=== PATIENT | female | born 1955 | race Caucasian/White ===

== ENCOUNTER 2021-10-30 09:37 | Emergency (ER) | payer OTHER ==
--- NOTE | 2021-10-30 10:33 | EDPHYS ---
Physician Documentation [facility] Name: Kelsi Truong Age: 65 yrs Sex: Female : 1955 Arrival Date: 10/30/2021 Time: 09:38 Bed 8 Private MD: ED Physician Richar Caicedo HPI: 10/30 10:24 This 65 yrs old Female presents to ER via [employer] with complaints of tana Medication Refill. 10:24 This 65 yrs old Female presents to ER via [employer] with complaints of tana Medication Refill. Historical: - Allergies: 09:49 Codeine; ss 09:49 PENICILLINS; ss - PMHx: 09:49 Schizophrenia; Bipolar disorder; Depressive disorder; ss - Immunization history:: Client reports receiving the 2nd dose of the Covid vaccine. - Social history:: Patient uses street drugs, marijuana, Methamphetamine (Meth) Smoking status: Patient reports the use of cigarette tobacco products, unknown amount. ROS: 10:24 Constitutional: Negative for fever, chills, and weight loss, Eyes: Negative for injury, tana pain, redness, and discharge, ENT: Negative for injury, pain, and discharge, Neck: Negative for injury, pain, and swelling, Cardiovascular: Negative for chest pain, palpitations, and edema, Respiratory: Negative for shortness of breath, cough, wheezing, and pleuritic chest pain, Abdomen/GI: Negative for abdominal pain, nausea, vomiting, diarrhea, and constipation, Back: Negative for injury and pain, : Negative for injury, bleeding, discharge, and swelling, MS/Extremity: Negative for injury and deformity, Skin: Negative for injury, rash, and discoloration, Neuro: Negative for headache, weakness, numbness, tingling, and seizure, Allergy/Immunology: Negative for hives, rash, and allergies, Endocrine: Negative for neck swelling, polydipsia, polyuria, polyphagia, and marked weight changes, Hematologic/Lymphatic: Negative for swollen nodes, abnormal bleeding, and unusual bruising. 10:24 Psych: Positive for depression. Exam: 10:24 Constitutional: This is a well developed, well nourished patient who is awake, alert, tana and in no acute distress. Head/Face: Normocephalic, atraumatic. Eyes: Pupils equal round and reactive to light, extra-ocular motions intact. Lids and lashes normal. Conjunctiva and sclera are non-icteric and not injected. Cornea within normal limits. Periorbital areas with no swelling, redness, or edema. ENT: Nares patent. No nasal discharge, no septal abnormalities noted. Tympanic membranes are normal and external auditory canals are clear. Oropharynx with no redness, swelling, or masses, exudates, or evidence of obstruction, uvula midline. Mucous membranes moist. Neck: Trachea midline, no thyromegaly or masses palpated, and no cervical lymphadenopathy. Supple, full range of motion without nuchal rigidity, or vertebral point tenderness. No Meningismus. Chest/axilla: Normal chest wall appearance and motion. Nontender with no deformity. No lesions are appreciated. Cardiovascular: Regular rate and rhythm with a normal S1 and S2. No gallops, murmurs, or rubs. Normal PMI, no JVD. No pulse deficits. Respiratory: Lungs have equal breath sounds bilaterally, clear to auscultation and percussion. No rales, rhonchi or wheezes noted. No increased work of breathing, no retractions or nasal flaring. Abdomen/GI: Soft, non-tender, with normal bowel sounds. No distension or tympany. No guarding or rebound. No evidence of tenderness throughout. Back: No spinal tenderness. No costovertebral tenderness. Full range of motion. Skin: Warm, dry with normal turgor. Normal color with no rashes, no lesions, and no evidence of cellulitis. MS/ Extremity: Pulses equal, no cyanosis. Neurovascular intact. Full, normal range of motion. Neuro: Awake and alert, GCS 15, oriented to person, place, time, and situation. Cranial nerves II-XII grossly intact. Motor strength 5/5 in all extremities. Sensory grossly intact. Cerebellar exam normal. Normal gait. 10:24 Psych: Behavior/mood is uncooperative, Affect is animated, Not oriented to time, Patient has no thoughts/intents to harm self or others. Judgement / Insight is impaired. Memory is normal. Delusions/hallucinations are not present. Vital Signs: 09:45 BP 137 / 83; Pulse 92; Resp 22; Pulse Ox 100% on R/A; Weight 57.15 kg; Height 4 ft. 11 ss in. (149.86 cm); Pain 0/10; 11:54 bp 09:45 Body Mass Index 25.45 (57.15 kg, 149.86 cm) ss 11:54 PT REFUSED bp MDM: 09:49 Patient medically screened. tana 10:27 Differential diagnosis: drug withdrawal. acute psychotic break, depression, psychosis tana secondary to non-compliance. Data reviewed: vital signs, nurses notes, lab test result(s), EKG. Data interpreted: cardiac monitor: rate is 92 beats/min, rhythm is regular, Pulse oximetry: on room air is 100 %. Test interpretation: by ED physician or midlevel provider: ECG, plain radiologic studies. Counseling: I had a detailed discussion with the patient and/or guardian regarding: the historical points, exam findings, and any diagnostic results supporting the discharge/admit diagnosis, lab results, the need to transfer to another facility, for higher level of care, [facility] does not immediately have the required specialist. 10/30 10:31 Order name: SARS RAPID bd 10/30 09:52 Order name: Suicide Screening ([place]); Complete Time: 09:59 tana 10/30 10:23 Order name: Diet Regular; Complete Time: 10:31 tana Administered Medications: 10:45 Drug: Depakene (valproic acid) 500 mg Route: PO; bp 11:30 Follow up: Response: No adverse reaction bp 11:08 Not Given (Patient Refused): NS 0.9% 1000 ml IV at 1 bolus Per protocol; 1000 mL bolus bp 11:30 Not Given (MED UNAVAILABLEe): SEROquel (QUEtiapine) 25 mg PO once bp Disposition Summary: 10/30/21 11:04 Discharge Ordered Location: Home tana Problem: new(10/30/21 11:04) tana Symptoms: have improved(10/30/21 11:04) tana Condition: Stable(10/30/21 11:04) tana Diagnosis - Abuse of other non-psychoactive substances tana - Bipolar disorder, unspecified tana - Schizophrenia, unspecified(10/30/21 11:04) tana Followup: tana - With: Private Physician - When: 2 - 3 days - Reason: Recheck today's complaints, Continuance of care, Re-evaluation by your physician Followup: tana - With: Karan Lyon MD - When: 2 - 3 days - Reason: Recheck today's complaints, Re-evaluation by your physician Discharge Instructions: - Discharge Summary Sheet tana - Substance Use Disorder tana - Schizophrenia tana - Managing Bipolar Disorder tana - Supporting Someone With Bipolar Disorder tana - Substance Use Disorder and Mental Illness tana - Supporting Someone With Schizophrenia tana - Supporting Someone With Substance Use Disorder tana Forms: - Medication Reconciliation Form tana - Thank You Letter tana - Antibiotic Education tana - Prescription Opioid Use tana Signatures: Dispatcher [employer] EDMS Richar Caicedo MD MD cha Smirch, Shelby RN RN Norris Figueroa RN RN bp Corrections: (The following items were deleted from the chart) 11:04 10:32 to psych tana tana 11:04 10:32 Psych Facility tana tana 11:04 10:32 Higher level of care tana tana 11:04 10:32 Stable tana tana 11:04 10:32 new tana tana 11:04 10:32 have improved tana tana 11:04 10:32 Bipolar disorder, current episode depressed, severe, with psychotic features tana tana 11:04 10:32 Schizophrenia, unspecified tana tana 11: 09:52 EKG - Nurse/Tech ordered. [facility] bp 11: 09:52 IV Saline Lock ordered. [facility] bp 11: 09:52 Labs collected and sent ordered. [facility] bp 11: 09:52 Urine Dipstick-Ancillary ordered. [facility] bp 11:43 10:31 VALPROIC ACID (DEPAKOTE)+C.LAB.BRZ ordered. EDMS EDMS 11:44 10:27 THYROID STIMULAT HORMONE+C.LAB.BRZ ordered. EDMS EDMS
--- NOTE | 2021-10-30 10:33 | ER ---
Nurse's Notes [facility] Name: Kelsi Truong Age: 65 yrs Sex: Female : 1955 Arrival Date: 10/30/2021 Time: 09:38 Bed 8 Private MD: Diagnosis: Abuse of other non-psychoactive substances;Bipolar disorder, unspecified;Schizophrenia, unspecified Presentation: 10/30 09:45 Chief complaint: Patient states: Out of psych medications for 1 week. Titi Damian officer states that he was called by her friend that she is living with because she was throwing wheelchairs out of the trailer. Pt admits to smoking meth and medical marijuana yesterday with friend. Denies SI/HI at this time, but states she was upset with her roommate after getting into an argument. Coronavirus screen: Client denies travel out of the [place] in the last 14 days. Ebola Screen: Patient denies exposure to infectious person. Patient denies travel to an Ebola-affected area in the 21 days before illness onset. Initial Sepsis Screen: Does the patient meet any 2 criteria? No. Patient's initial sepsis screen is negative. Does the patient have a suspected source of infection? No. Patient's initial sepsis screen is negative. Risk Assessment: Do you want to hurt yourself or someone else? Patient reports no desire to harm self or others. Onset of symptoms is unknown. 09:45 Method Of Arrival: Law Enforcement: Titi Damian [facility] 09:45 Acuity: EBONY 3 ss Triage Assessment: 09:50 General: Appears in no apparent distress. comfortable, Behavior is calm, cooperative. bp Pain: Denies pain. EENT: No deficits noted. Neuro: Level of Consciousness is awake, alert, obeys commands, Oriented to Appropriate for age. Cardiovascular: No deficits noted. Respiratory: No deficits noted. GI: No signs and/or symptoms were reported involving the gastrointestinal system. : No signs and/or symptoms were reported regarding the genitourinary system. Derm: No deficits noted. Musculoskeletal: No deficits noted. Historical: - Allergies: 09:49 Codeine; ss 09:49 PENICILLINS; ss - PMHx: 09:49 Schizophrenia; Bipolar disorder; Depressive disorder; ss - Immunization history:: Client reports receiving the 2nd dose of the Covid vaccine. - Social history:: Patient uses street drugs, marijuana, Methamphetamine (Meth) Smoking status: Patient reports the use of cigarette tobacco products, unknown amount. Screenin:50 Abuse screen: Denies threats or abuse. Denies injuries from another. Nutritional bp screening: No deficits noted. Tuberculosis screening: No symptoms or risk factors identified. Fall Risk None identified. Assessment: 09:50 General: SEE TRIAGE NOTE. bp 11:03 Reassessment: PT REFUSING PIV AND FURTHER CARE. CONTINUES TO DENY SI/HI. MD NOTIFIED. bp 11:30 Reassessment: D/C ON HOLD FOR FEEDING. bp 11:54 Reassessment: PT D/C AMBULATORY. bp Vital Signs: 09:45 BP 137 / 83; Pulse 92; Resp 22; Pulse Ox 100% on R/A; Weight 57.15 kg; Height 4 ft. 11 ss in. (149.86 cm); Pain 0/10; 11:54 bp 09:45 Body Mass Index 25.45 (57.15 kg, 149.86 cm) ss 11:54 PT REFUSED bp ED Course: 09:38 Patient arrived in ED. bd 09:49 Triage completed. ss 09:49 Richar Caicedo MD is Attending Physician. tana 09:49 Arm band placed on right wrist. ss 09:50 Patient has correct armband on for positive identification. Bed in low position. Call bp light in reach. Side rails up X2. 09:56 Norris Figueroa, LIVIA is Primary Nurse. bp 11:04 Karan Lyon MD is Referral Physician. tana 11:30 No provider procedures requiring assistance completed. Patient did not have IV access bp during this emergency room visit. Administered Medications: 10:45 Drug: Depakene (valproic acid) 500 mg Route: PO; bp 11:30 Follow up: Response: No adverse reaction bp 11:08 Not Given (Patient Refused): NS 0.9% 1000 ml IV at 1 bolus Per protocol; 1000 mL bolus bp 11:30 Not Given (MED UNAVAILABLEe): SEROquel (QUEtiapine) 25 mg PO once bp Medication: 09:50 VIS not applicable for this client. bp Outcome: 10:32 ER care complete, transfer ordered by . tana 11:04 Discharge ordered by . tana 11:30 Discharged to home ambulatory. bp 11:30 Condition: stable 11:30 Discharge instructions given to patient, Instructed on discharge instructions, follow up and referral plans. Demonstrated understanding of instructions, follow-up care. 11:56 Patient left the ED. bp Signatures: Yocasta Sanderson Corey, MD MD cha Smirch, Shelby, LIVIA RN ss Norris Figueroa RN RN bp
[2021-10-30] MEDS ORDERED: DIVALPROEX DR 250 MG TAB PO ONE (11:21)
[2021-10-30 11:30] LABS: SARS-CoV-2 Antigen Rapid Res Negative (Negative)
[2021-10-30 12:23] VITALS: BP 137/83; O2SAT 100
== END 2021-10-30 11:56 | disposition home or self-care (01) ==
LOC: ER 09:37 → EDBD 09:37 → ER 11:56
DX: F55.8 Abuse of other non-psychoactive substances (principal); F20.9 Schizophrenia, unspecified; F31.9 Bipolar disorder, unspecified; F17.210 Nicotine dependence, cigarettes, uncomplicated; Z88.0 Allergy status to penicillin; Z20.822 Contact with and (suspected) exposure to COVID-19
CPT/HCPCS: 36415; 87811

== ENCOUNTER 2021-11-01 13:54 | Emergency (ER) | payer OTHER ==
--- OUTSIDE RECORDS SUMMARY | 2021-11-01 14:00 | XMS REPORT | Continuity of Care Document ---
:1955 Author Organization [facility] t Address [address] [place] [address] Care Team Providers Name Role Phone Doris Daigle A Attending Clinician Unavailable PATRICK ROSAS Attending Clinician Unavailable Doris Daigle A Admitting Clinician Unavailable Physician, No Primary or Family Admitting Clinician Unavaila ble Payers Payer Name Policy Type Policy Number Effective Date Expiration Date S itzel MEDICARE PART A & B [id number] 2003 00:00:00 [facility] [id number] 2020 MEDICAID CROSSOVER 00:00:00 Problems This patient has no known problems. Allergies, Adverse Reactions, Alerts Allergy Allergy Status Severity Reaction(s) Onset Inactive Treating Comm ents Source Name Type Date Date Clinician zolpidem DA Active MO 2018-03 [facility] tartrate 04-15 Clear 00:00: Gaytan 00 [facility] [place] DA Active U 2018-03 [facility] ins 04-15 Clear 00:00: Gaytan [facility] morphine DA Active SV 2018-03 [facility] 04-15 Clear 00:00: Gaytan [facility] clopidog DA Active U 2018-03 [facility] rel 04-15 Clear 00:00: Gaytan 00 [facility] zolpidem DA Active MO sleep walks 2018- [facility] tartrate 04-15 Clear 00:00: Gaytan 00 [facility] [place] DA Active U RASH 2018- [facility] ins 04-15 Clear 00:00: Gaytan 00 [facility] morphine DA Active SV "I GO 2018- [facility] GERARDO", 04-15 Clear HALLUCINATIO 00:00: Gaytan NS [facility] clopidog DA Active U HIVES 2018- [facility] rel 04-15 Clear 00:00: Gaytan 00 [facility] zolpidem DA Active MO 2018-0 [facility] tartrate 10-24 Clear 00:00: Gaytan 00 [facility] [place] DA Active U 2018-0 [facility] ins 10-24 Clear 00:00: Gaytan [facility] morphine DA Active SV 2018-0 [facility] 10-24 Clear 00:00: Gaytan 00 [facility] clopidog DA Active U 2018-0 [facility] rel 10-24 Clear 00:00: Gaytan 00 [facility] zolpidem DA Active MO 2015- [facility] tartrate 06-29 [place] [facility] DA Active U 2015- [facility] ins 06-29 [place] [facility] morphine DA Active SV 2015-0 [facility] 08 [place] 00:[facility]: e [facility] clopidog DA Active U 2015-0 [facility] rel 06-29 [place] 00:[facility]: e [facility] Medications This patient has no known medications. Procedures This patient has no known procedures. Encounters Start End Encounter Admission Attending Care Care Encounter Source Date/Time Date/Time Type Type Clinicians Facility Department ID 2020-01-20 Inpatient EM JOANNA Daigle INTE.02 [id number] [facility] 00:43:00 [facility] [id number] [facility] 2020-01-19 Inpatient HCABM TERRA [id number] [facility] 22:15:00 [id number] [facility] 2021-04-03 2021-04-04 Emergency [id number] Prasanna Ray 19:24:00 06:06:00 PATRICK Junior 2021-04-04 2021-04-04 Emergency [facility] [id number] Prasanna Ray 00:53:39 01:22:09 Health 2021-04-04 2021-04-04 Emergency [facility] [id number] Ray 00:34:37 00:50:23 PATRICK Junior h 2021-04-03 2021-04-03 Emergency [facility] [id number] Ray 23:45:36 23:45:40 Health 2020-01-20 2020-01-20 Outpatient DESIRE Daigle [id number] [facility] 14:59:00 14:59:00 [facility] [id number] [facility] Results Test Description Test Time Test Comments Results Result Comments Source COVID 19 Asymptomatic IH AG 2020-01-22 16:12:00 Test Item Value Reference Range Interpretation Comme nts COVID 19 Asymptomatic IH AG (test code = COVNONPUIAG) NEGATIVE [id number] 13:41:00 Test Item Value Reference Range Interpretation Comments GLUBED (test code = 135 mg/dL 74-106 H 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[facility] THROMBOPLASTIN TIME [id number] 05:36:00 Test Item Value Reference Range Interpretation Comments THROMBOPLASTIN TIME PARTIAL 57.9 seconds 23.0-37.0 H (test code = PTT) CBC W/AUTO [id number] 05:08:00 Test Item Value Reference Range Interpretation Comments WHITE BLOOD CELL (test code = 5.2 K/mm3 4.5-12.5 N WBC) RED BLOOD CELL (test code = 2.65 mill/mm3 3.7-5.2 L RBC) HEMOGLOBIN (test code = HGB) 9.8 gram/dL 11.5-15.5 L HEMATOCRIT (test code = HCT) 29.5 % 36.0-46.0 L MEAN CELL VOLUME (test code = 111.3 fL 80-98 H MCV) MEAN CELL HGB (test code = MCH) 37.0 picogram 27.0-33.0 H MEAN CELL HGB CONCETRATION 33.2 gram/dL 33.0-36.0 N (test code = MCHC) RED CELL DISTRIBUTION WIDTH 14.2 % 11.6-16.2 N (test code = RDW) RED CELL DISTRIBUTION WIDTH SD 57.8 fL 37.0-51.0 H (test code = RDW-SD) PLATELET COUNT (test code = 143 K/mm3 150-450 L PLT) MEAN PLATELET VOLUME (test code 9.5 fL 6.7-11.0 N = MPV) NEUTROPHIL % (test code = NT%) 54.0 % 39.0-69.0 N IMMATURE GRANULOCYTE % (test 0.4 % 0.0-5.0 N code = IG%) LYMPHOCYTE % (test code = LY%) 31.1 % 25.0-55.0 N MONOCYTE % (test code = MO%) 14.1 % 0.0-10.0 H EOSINOPHIL % (test code = EO%) 0.2 % 0.0-5.0 N BASOPHIL % (test code = BA%) 0.2 % 0.0-1.0 N NUCLEATED RBC % (test code = 0.0 % 0-0 N NRBC%) NEUTROPHIL # (test code = NT#) 2.83 K/mm3 1.8-7.7 N IMMATURE GRANULOCYTE # (test 0.02 x10 3/uL 0-0.03 N code = IG#) LYMPHOCYTE # (test code = LY#) 1.63 K/mm3 1.0-5.0 N MONOCYTE # (test code = MO#) 0.74 K/mm3 0-0.8 N EOSINOPHIL # (test code = EO#) 0.01 K/mm3 0.0-0.5 N BASOPHIL # (test code = BA#) 0.01 K/mm3 0.0-0.2 N NUCLEATED RBC # (test code = 0.00 K/mm3 0.0-0.1 N NRBC#) MANUAL DIFF REQUIRED (test code NO = MDIFF) BASIC METABOLIC [id number] 03:42:00 Test Item Value Reference Range Interpretation Comments SODIUM (test code = 140 mmol/L 136-145 N NA) POTASSIUM (test code 3.6 mmol/L 3.5-5.1 N = K) CHLORIDE (test code = 109.0 mmol/L 98-107 H CL) CARBON DIOXIDE (test 22.0 mmol/L 21-32 N code = CO2) ANION GAP (test code 12.6 10-20 N = GAP) GLUCOSE (test code = 77 mg/dL 74-106 N GLU) BLOOD UREA NITROGEN 19 mg/dL 7-18 H (test code = BUN) GLOMERULAR FILTRATION 50 mL/min >=60 Estima shai GFR by RATE (test code = using Cristin fied MDRD GFR) formula.Chronic kidney disease is defined as [facility] er kidney damageor GFR <60 mL/min/1.73 m2 for >3 months. CREATININE (test code 1.10 mg/dL 0.55-1.02 H Note change in = CREAT) reference range due to change in reagent. BUN/CREATININE RATIO 17.3 10-20 N (test code = BUN/CREA) CALCIUM (test code = 7.5 mg/dL 8.5-10.1 L CA) THROMBOPLASTIN TIME [id number] 17:42:00 Test Item Value Reference Range Interpretation Comments THROMBOPLASTIN TIME PARTIAL 41.1 seconds 23.0-37.0 H (test code = PTT) IS PATIENT ON ANTICOAGULANTS? YLIST ANTICOAGULANTS HEPARINTHROMBOPLASTIN TIME [id number] 10:32:00 Test Item Value Reference Range Interpretation Comments THROMBOPLASTIN TIME PARTIAL 47.0 seconds 23.0-37.0 H (test code = PTT) IS PATIENT ON ANTICOAGULANTS? YLIST ANTICOAGULANTS HEPARINCOMMENTS TO PILLOWCASE FOLDER: ON HEPARIN DRIPCOMPREHENSIVE METABOLIC [id number] 04:15:00 Test Item Value Reference Range Interpretation Comments SODIUM (test code = 137 mmol/L 136-145 N NA) POTASSIUM (test code = 4.0 mmol/L 3.5-5.1 N K) CHLORIDE (test code = 103.0 mmol/L 98-107 N CL) CARBON DIOXIDE (test 27.0 mmol/L 21-32 N code = CO2) ANION GAP (test code = 11.0 10-20 N GAP) GLUCOSE (test code = 88 mg/dL 74-106 N GLU) BLOOD UREA NITROGEN 21 mg/dL 7-18 H (test code = BUN) GLOMERULAR FILTRATION 45 mL/min >=60 Estima shai GFR by RATE (test code = GFR) using Modified MDRD formula.Chronic kidney disease is defined as [facility] er kidney damageor GFR <60 mL/min/1.73 m2 for >3 months. CREATININE (test code 1.20 mg/dL 0.55-1.02 H Note change in = CREAT) reference range due to change in reagent. BUN/CREATININE RATIO 17.5 10-20 N (test code = BUN/CREA) TOTAL PROTEIN (test 5.6 gram/dL 6.4-8.2 L code = PROT) ALBUMIN (test code = 2.4 g/dL 3.4-5.0 L ALB) GLOBULIN (test code = 3.2 gram/dL 2.7-4.2 N GLOB) ALBUMIN/GLOBULIN RATIO 0.8 0.75-1.50 N (test code = A/G) CALCIUM (test code = 8.3 mg/dL 8.5-10.1 L CA) BILIRUBIN TOTAL (test 0.50 mg/dL 0.0-1.0 N code = BILT) SGOT/AST (test code = 110 IUnit/L 15-37 H AST) SGPT/ALT (test code = 23 IUnit/L 12-78 N ALT) ALKALINE PHOSPHATASE 55 IUnit/L 45-117 N Note change in TOTAL (test code = reference range due ALKP) to change in reagent. COMPREHENSIVE METABOLIC [id number] 04:11:00 Test Item Value Reference Range Interpretation Comments SODIUM (test code = NA) 137 mmol/L 136-145 N POTASSIUM (test code = K) 4.0 mmol/L 3.5-5.1 N CHLORIDE (test code = CL) 103.0 mmol/L 98-107 N CARBON DIOXIDE (test code = CO2) mmol/L 21-32 ANION GAP (test code = GAP) 10-20 GLUCOSE (test code = GLU) mg/dL 74-106 BLOOD UREA NITROGEN (test code = mg/dL 7-18 BUN) GLOMERULAR FILTRATION RATE (test mL/min >=60 code = GFR) CREATININE (test code = CREAT) mg/dL 0.55-1.02 BUN/CREATININE RATIO (test code 10-20 = BUN/CREA) TOTAL PROTEIN (test code = PROT) gram/dL 6.4-8.2 ALBUMIN (test code = ALB) g/dL 3.4-5.0 GLOBULIN (test code = GLOB) gram/dL 2.7-4.2 ALBUMIN/GLOBULIN RATIO (test 0.75-1.50 code = A/G) CALCIUM (test code = CA) mg/dL 8.5-10.1 BILIRUBIN TOTAL (test code = mg/dL 0.0-1.0 BILT) SGOT/AST (test code = AST) IUnit/L 15-37 SGPT/ALT (test code = ALT) IUnit/L 12-78 ALKALINE PHOSPHATASE TOTAL (test IUnit/L 45-117 code = ALKP) THROMBOPLASTIN TIME [id number] 03:55:00 Test Item Value Reference Range Interpretation Comments THROMBOPLASTIN TIME PARTIAL 54.6 seconds 23.0-37.0 H (test code = PTT) IS PATIENT ON ANTICOAGULANTS? YLIST ANTICOAGULANTS HEPARINCBC W/AUTO DIFF 2020-01-21 03:46:00 Test Item Value Reference Range Interpretation Comments WHITE BLOOD CELL (test code = 5.7 K/mm3 4.5-12.5 N WBC) RED BLOOD CELL (test code = 2.62 mill/mm3 3.7-5.2 L RBC) HEMOGLOBIN (test code = HGB) 9.6 gram/dL 11.5-15.5 L HEMATOCRIT (test code = HCT) 28.6 % 36.0-46.0 L MEAN CELL VOLUME (test code = 109.2 fL 80-98 H MCV) MEAN CELL HGB (test code = MCH) 36.6 picogram 27.0-33.0 H MEAN CELL HGB CONCETRATION 33.6 gram/dL 33.0-36.0 N (test code = MCHC) RED CELL DISTRIBUTION WIDTH 14.2 % 11.6-16.2 N (test code = RDW) RED CELL DISTRIBUTION WIDTH SD 56.1 fL 37.0-51.0 H (test code = RDW-SD) PLATELET COUNT (test code = 120 K/mm3 150-450 L PLT) MEAN PLATELET VOLUME (test code 9.6 fL 6.7-11.0 N = MPV) NEUTROPHIL % (test code = NT%) 60.7 % 39.0-69.0 N IMMATURE GRANULOCYTE % (test 0.4 % 0.0-5.0 N code = IG%) LYMPHOCYTE % (test code = LY%) 26.7 % 25.0-55.0 N MONOCYTE % (test code = MO%) 11.5 % 0.0-10.0 H EOSINOPHIL % (test code = EO%) 0.5 % 0.0-5.0 N BASOPHIL % (test code = BA%) 0.2 % 0.0-1.0 N NUCLEATED RBC % (test code = 0.0 % 0-0 N NRBC%) NEUTROPHIL # (test code = NT#) 3.44 K/mm3 1.8-7.7 N IMMATURE GRANULOCYTE # (test 0.02 x10 3/uL 0-0.03 N code = IG#) LYMPHOCYTE # (test code = LY#) 1.51 K/mm3 1.0-5.0 N MONOCYTE # (test code = MO#) 0.65 K/mm3 0-0.8 N EOSINOPHIL # (test code = EO#) 0.03 K/mm3 0.0-0.5 N BASOPHIL # (test code = BA#) 0.01 K/mm3 0.0-0.2 N NUCLEATED RBC # (test code = 0.00 K/mm3 0.0-0.1 N NRBC#) MANUAL DIFF REQUIRED (test code NO = MDIFF) THROMBOPLASTIN TIME [id number] 22:17:00 Test Item Value Reference Range Interpretation Comments THROMBOPLASTIN TIME PARTIAL 55.6 seconds 23.0-37.0 H (test code = PTT) IS PATIENT ON ANTICOAGULANTS? YLIST ANTICOAGULANTS HEPARINTHYROID STIMULATING [id number] 17:42:00 Test Item Value Reference Range Interpretation Comments THYROID STIMULATING 44.100 uIU/mL 0.36-3.74 H TSH REF ERENCE HORMONE (test code = RANGES: EUTHYROID: TSH) 0.35 - 4.3 mIU/ mL HYPO : > 5.5 mI U/mL HYPER : < 0.35 mIU/mL SPECIMEN COMMENTS: add onCOMMENTS TO PILLOWCASE FOLDER: add onTHROMBOPLASTIN TIME [id number] 15:27:00 Test Item Value Reference Range Interpretation Comments THROMBOPLASTIN TIME PARTIAL 47.4 seconds 23.0-37.0 H (test code = PTT) SPECIMEN COMMENTS: HEPARIN DRIPIS PATIENT ON ANTICOAGULANTS? YLIST ANTICOAGULANTS [id number] 10:33:00 Test Item Value Reference Range Interpretation Comments TROPONIN-I (test code = TROPI) 3.000 ng/mL 0-0.045 HH COMMENTS TO PILLOWCASE FOLDER: COLLECT 3 HOURS AFTER PREVIOUS SAMPLETROPONIN-I 2020-01-20 07:36:00 Test Item Value Reference Range Interpretation Comments TROPONIN-I (test 2.690 ng/mL 0-0.045 HH Results dee led to FRANK code = TROPI) [id number] by Valeriano ESCOBAROA 01/20/20 [id number] itical results verifie d and read back by Nu rse? Y COMMENTS TO PILLOWCASE FOLDER: COLLECT 3 HOURS AFTER PREVIOUS SAMPLEBASIC METABOLIC [id number] 07:18:00 Test Item Value Reference Range Interpretation Comments SODIUM (test code = 133 mmol/L 136-145 L NA) POTASSIUM (test code 4.0 mmol/L 3.5-5.1 N = K) CHLORIDE (test code = 101.0 mmol/L 98-107 N CL) CARBON DIOXIDE (test 24.0 mmol/L 21-32 N code = CO2) ANION GAP (test code 12.0 10-20 N = GAP) GLUCOSE (test code = 88 mg/dL 74-106 N GLU) BLOOD UREA NITROGEN 13 mg/dL 7-18 N (test code = BUN) GLOMERULAR FILTRATION 45 mL/min >=60 Estima shai GFR by RATE (test code = using Cristin fied MDRD GFR) formula.Chronic kidney disease is defined as ei er kidney damageor GFR <60 mL/min/1.73 m2 for >3 months. CREATININE (test code 1.20 mg/dL 0.55-1.02 H Note change in = CREAT) reference range due to change in reagent. BUN/CREATININE RATIO 10.8 10-20 N (test code = BUN/CREA) CALCIUM (test code = 8.8 mg/dL 8.5-10.1 N CA) LIPID PROFILE (CORONARY RISK)2020-01-20 07:18:00 Test Item Value Reference Range Interpretation Comments TRIGLYCERIDES (test 124 mg/dL 20-150 N code = TRIG) CHOLESTEROL (test code 160 mg/dL 0-200 N = CHOL) CHOLESTEROL/HDL RATIO 3.0 RATIO 0-4.9 N RISK A SSOCIATED WITH (test code = CHOLHDL) CHOL/H DL RATIOS: Risk Male Female1/2 AVERAGE 3.43 3.27AVERAG E 4.97 4.442X AVERAGE 9.55 7.053X AVERAGE 23.39 11.04 REFERENCE VALUE IS RELATED TO R ISK LEVELS ASRECOMM ENDED BY THE NAT. GARRISON RT, LUNG, AND BLOOD INST. HDL CHOLESTEROL (test 52 mg/dL 40-60 N code = HDL) LIPOPROTEIN LDL (test 92 mg/dL 100-129 L ====== code = LDL) ======= Referen ce Interval: mg /dL mmol/L--------- ------- ------- ------O ptimal <100 <2.6Near/above optimal 100-129 2.6-3.3Borderli ne High 130-159 3.4-4.1 High 160-189 4.1-4.9 Very High >=190 >=4.9========= This LDL result is a direct measurement.=== ====== BASIC METABOLIC [id number] 07:10:00 Test Item Value Reference Range Interpretation Comments SODIUM (test code = NA) 133 mmol/L 136-145 L POTASSIUM (test code = K) 4.0 mmol/L 3.5-5.1 N CHLORIDE (test code = CL) 101.0 mmol/L 98-107 N CARBON DIOXIDE (test code = CO2) mmol/L 21-32 ANION GAP (test code = GAP) 10-20 GLUCOSE (test code = GLU) mg/dL 74-106 BLOOD UREA NITROGEN (test code = mg/dL 7-18 BUN) GLOMERULAR FILTRATION RATE (test mL/min >=60 code = GFR) CREATININE (test code = CREAT) mg/dL 0.55-1.02 BUN/CREATININE RATIO (test code 10-20 = BUN/CREA) CALCIUM (test code = CA) mg/dL 8.5-10.1 LIPID PROFILE (CORONARY RISK)2020-01-20 07:10:00 Test Item Value Reference Range Interpretation Comments TRIGLYCERIDES (test code = TRIG) mg/dL 20-150 CHOLESTEROL (test code = CHOL) mg/dL 0-200 CHOLESTEROL/HDL RATIO (test code = RATIO 0-4.9 CHOLHDL) HDL CHOLESTEROL (test code = HDL) mg/dL 40-60 LIPOPROTEIN LDL (test code = LDL) mg/dL 100-129 CBC W/AUTO [id number] 06:14:00 Test Item Value Reference Range Interpretation Comments WHITE BLOOD CELL (test code = 7.5 K/mm3 4.5-12.5 N WBC) RED BLOOD CELL (test code = 2.80 mill/mm3 3.7-5.2 L RBC) HEMOGLOBIN (test code = HGB) 10.1 gram/dL 11.5-15.5 L HEMATOCRIT (test code = HCT) 31.2 % 36.0-46.0 L MEAN CELL VOLUME (test code = 111.4 fL 80-98 H MCV) MEAN CELL HGB (test code = MCH) 36.1 picogram 27.0-33.0 H MEAN CELL HGB CONCETRATION 32.4 gram/dL 33.0-36.0 L (test code = MCHC) RED CELL DISTRIBUTION WIDTH 14.2 % 11.6-16.2 N (test code = RDW) RED CELL DISTRIBUTION WIDTH SD 57.6 fL 37.0-51.0 H (test code = RDW-SD) PLATELET COUNT (test code = 98 K/mm3 150-450 L PLT) MEAN PLATELET VOLUME (test code 9.9 fL 6.7-11.0 N = MPV) NEUTROPHIL % (test code = NT%) 65.1 % 39.0-69.0 N IMMATURE GRANULOCYTE % (test 0.5 % 0.0-5.0 N code = IG%) LYMPHOCYTE % (test code = LY%) 24.0 % 25.0-55.0 L MONOCYTE % (test code = MO%) 9.8 % 0.0-10.0 N EOSINOPHIL % (test code = EO%) 0.3 % 0.0-5.0 N BASOPHIL % (test code = BA%) 0.3 % 0.0-1.0 N NUCLEATED RBC % (test code = 0.0 % 0-0 N NRBC%) NEUTROPHIL # (test code = NT#) 4.91 K/mm3 1.8-7.7 N IMMATURE GRANULOCYTE # (test 0.04 x10 3/uL 0-0.03 H code = IG#) LYMPHOCYTE # (test code = LY#) 1.81 K/mm3 1.0-5.0 N MONOCYTE # (test code = MO#) 0.74 K/mm3 0-0.8 N EOSINOPHIL # (test code = EO#) 0.02 K/mm3 0.0-0.5 N BASOPHIL # (test code = BA#) 0.02 K/mm3 0.0-0.2 N NUCLEATED RBC # (test code = 0.00 K/mm3 0.0-0.1 N NRBC#) MANUAL DIFF REQUIRED (test code NO = MDIFF) THROMBOPLASTIN TIME [id number] 03:44:00 Test Item Value Reference Range Interpretation Comments THROMBOPLASTIN TIME PARTIAL 29.8 seconds 23.0-37.0 N (test code = PTT) IS PATIENT ON ANTICOAGULANTS? YLIST ANTICOAGULANTS [id number] 03:34:00 Test Item Value Reference Range Interpretation Comments HEMATOCRIT (test code = HCT) 27.4 % 36.0-46.0 L PLATELET [id number] 03:34:00 Test Item Value Reference Range Interpretation Comments PLATELET COUNT (test code = PLT) 96 K/mm3 150-450 L BASIC METABOLIC [id number] 23:18:00 Test Item Value Reference Range Interpretation Comments SODIUM (test code = 137 mmol/L 136-145 N NA) POTASSIUM (test code 4.7 mmol/L 3.5-5.1 N = K) CHLORIDE (test code = 102.0 mmol/L 98-107 N CL) CARBON DIOXIDE (test 25.0 mmol/L 21-32 N code = CO2) ANION GAP (test code 14.7 10-20 N = GAP) GLUCOSE (test code = 91 mg/dL 74-106 N GLU) BLOOD UREA NITROGEN 13 mg/dL 7-18 N (test code = BUN) GLOMERULAR FILTRATION 35 mL/min >=60 Estima shai GFR by RATE (test code = using Cristin fied MDRD GFR) formula.Chronic kidney disease is defined as [facility] er kidney damageor GFR <60 mL/min/1.73 m2 for >3 months. CREATININE (test code 1.50 mg/dL 0.55-1.02 H Note change in = CREAT) reference range due to change in reagent. BUN/CREATININE RATIO 8.7 10-20 L (test code = BUN/CREA) CALCIUM (test code = 9.1 mg/dL 8.5-10.1 N CA) [id number] 23:18:00 Test Item Value Reference Range Interpretation Comments TROPONIN-I (test 1.460 ng/mL 0-0.045 HH Results dee led to code = TROPI) [id number] by Valeriano SCHERER.GP 01/19/20 [id number] itical results verifie d and read back by Nu rse? Y [id number] 23:18:00 Test Item Value Reference Range Interpretation Comments ALCOHOL (test code = 5 mg/dL 0.0-3.0 H ------- INTERPRET ALC) LYNN DATA NOTE: POSITIVE SCREEN ING RESULTS SHOULD BE CONSI DERED PRESUMPTIVE.WHE N COLLECTED FOR MEDICAL PUR POSES ONLY. SPECIMEN WILL N OTBE COLLECTED BY AIN OF CUSTODY.IF A CO NFIRMATION OF POSITIVE RES ULTS IS DESIRED, ACONFI RMATION TEST MUST BE RE QUESTED BY THE PHYSICIAN A T ANADDITIONAL CH ARGE TO THE PATIENT. DRUGS OF ABUSE SCREEN [id number] 23:01:00 Test Item Value Reference Range Interpretation Comments UA PH DIPSTICK (test 6.5 5.0-8.0 code = DORIS) URN COCAINE (test NEGATIVE <300 ng/mL code = COCAURN) URN CANNABINOIDS POSITIVE <50 ng/mL A This test p rovides only a (test code = preliminary sathish t result. CANNABURN) A morespecific alternate chemical method must be used in order t oobtain a confirmed norma tical result. Gas chromatography/ mass spectrometry (G C/MS) is thepreferred co nfirmatory method. Other c hemical confirmationmet hods are available. Clin ical consideration a nd professional ju dgment should be appli ed to any drug of abusete st result, particularly wh en preliminary pos itive resultsare used.Unconfirme d screening resul ts must not be used fornon-medical purposes (e.g., employme nt testing, legalt esting). URN AMPHETAMINE (test NEGATIVE <1000 ng/mL code = AMPHETURN) URN BARBITURATE (test NEGATIVE <200 ng/mL code = BARBITURN) URN BENZODIAZEPINE NEGATIVE <200 ng/mL (test code = BENZOURN) URN OPIATES (test NEGATIVE <300 ng/mL code = OPIATURN) URN PHENCYCLIDINE NEGATIVE <25 ng/mL (PCP) (test code = PHENCURN) URN METHADONE (test NEGATIVE <300 ng/mL code = METHAURN) BASIC METABOLIC [id number] 22:50:00 Test Item Value Reference Range Interpretation Comments SODIUM (test code = NA) 137 mmol/L 136-145 N POTASSIUM (test code = K) 4.7 mmol/L 3.5-5.1 N CHLORIDE (test code = CL) 102.0 mmol/L 98-107 N CARBON DIOXIDE (test code = CO2) mmol/L 21-32 ANION GAP (test code = GAP) 10-20 GLUCOSE (test code = GLU) mg/dL 74-106 BLOOD UREA NITROGEN (test code = mg/dL 7-18 BUN) GLOMERULAR FILTRATION RATE (test mL/min >=60 code = GFR) CREATININE (test code = CREAT) mg/dL 0.55-1.02 BUN/CREATININE RATIO (test code 01-10 = BUN/CREA) CALCIUM (test code = CA) mg/dL 8.5-10.1 [id number] 22:50:00 Test Item Value Reference Range Interpretation Comments TROPONIN-I (test code = TROPI) ng/mL 0-0.045 [id number] 22:50:00 Test Item Value Reference Range Interpretation Comments ALCOHOL (test code = ALC) mg/dL 0-3 - CT C-SPINE W/O [id number] 22:49:00 [facility]Name: AGUS RODRIGUES : 1955 Sex: F Name: AGUS RODRIGUES [facility] : 1955 Age/S: 64 / F [address] [facility] Unit #: [id number] Loc: [place] [address] Phys: Nicholas Hernadez MD Acct: [id number] Dis Date: Status: REG ER PHONE #:[phone] Exam Date: 01/19/20202239 FAX #: [phone] Reason: Neck Pain EXAMS: CPT CODE: [id number] CT C-SPINE W/O CONTRAST 82297 AFTER HOURS SERVICE ON: 01/19/2020 10:[address] of the Cervical Spine Without Contrast Location Code M12 History: Neck Pain, fall on blood thinners. Technique: Scans were obtained on a helical scanner pre IV contrast only. One or more of the following dose reduction techniques were used: Automated exposure control, adjustment of the mA and/or kV according to patient size, and/or utilization of iterative reconstruction technique. Findings: Craniocervical junction isintact. Atlantoaxial joint is unremarkable. C1 ring is normal. Dens is intact. Transverse processes,pedicles and lamina are intact. No compression fracture or pathologic lesions. There is moderate cervical spondylosis including multilevel endplate spurs and disc space narrowing, more pronounced at C5-C6 where there is mild central canal stenosis and moderate to severe bilateral foraminal stenoses. Impression: No cervical spine fracture. Electronically Signed by Pedro Varghese M.D. on01/19/2020 at 2249 Reported and signed by: Pedro Varghese M.D. CC: Nicholas Hernadez MD Technol ogist:Soco Henriquez RT(R); ANEUDY Goncalves CTDI: DLP: Trnscb Date/Time: 01/19/2020 (2248) Luis [email or web address] Orig Print D/T: S: 01/19/2020 (0762) PAGE 1 Signed Report- CT HEAD/BRAIN W/O [id number] 22:42:00 [facility] ([facility])Name: AGUS RODRIGUES : 1955 Sex: F Name: AGUS RODRIGUES [facility] : 1955 Age/S: 64 / F [address] Unit #: [id number] Loc: [place] [address] Phys: Nicholas Hernadez MD Acct: [id number] Dis Date: Status: REG ER PHONE #:[phone] Exam Date: 01/19/20202236 FAX #: [phone] Reason: HEADACHE EXAMS: CPT CODE: [id number] CT HEAD/BRAIN W/O CONT 98249 EXAM: - CT HEAD/BRAIN W/O CONT LOCATION: H57 HISTORY: 64 years-year old Female with HEADACHE TECHNIQUE: Computerized tomography images from the skull base to the vertex were obtained. Coronal and sagittal reformatted images are provided. This exam was performed according to our departmental dose- optimization program, which includes automated exposure control, adjustment of the mA and/or kV according to patient size and/or use of iterative reconstruction technique COMPARISON: 03/04/2019 FINDINGS: Brain: Scattered periventricular and subcortical hypodensities are nonspecific, but commonly associated with chronic microvascular ischemic disease. There is moderate global volume loss. There is no evidence of an acute territorial infarct. There is no mass effect, midline shift, or parenchymal edema. Ventricles/Extra-axial spaces: There is no acute intracranial hemorrhage or extra-axial fluid collection. The ventricles are unremarkable. No basal cistern effacement. Bones: There is no evidence of acute displaced calvarial fracture. Sinuses: The visualized paranasal sinuses and mastoid air cells are clear. Soft Tissues: Unremarkable. Other: Atherosclerotic calcification is noted in the carotid siphons. IMPRESSION: 1. No CT evidence of acute intracranial abnormality. PAGE 1 Signed Report (CONTINUED) Name: AGUS RODRIGUES [facility] : 1955 Age[facility]S: 64 [facility] [id number] Loc: [place] [address] Phys: Nicholas Hernadez MD Acct: [id number] Dis Date: Status: REG ER PHONE #: [phone] Exam Date: 01/19/20202236 FAX #: [phone] Reason: HEADACHE EXAMS: CPT CODE: [id number] CT HEAD/BRAIN W/O CONT 30552 <Continued> at 2242 Reported and signed by: Stephane Sawyer M.D. CC: Nicholas Hernadez MD Technologist:Soco Henriquez RT(R); ANEUDY Goncalves CTDI: DLP: TrnscbDate/Time: 01/19/2020 (2241) [email or web address] Orig Print D/T: S: 01/19/2020 (9) PAGE 2 Signed ReportCBC W/O [id number] 22:35:00 Test Item Value Reference Range Interpretation Comments WHITE BLOOD CELL (test code = 9.8 K/mm3 4.5-12.5 N WBC) RED BLOOD CELL (test code = 2.73 mill/mm3 3.7-5.2 L RBC) HEMOGLOBIN (test code = HGB) 9.9 gram/dL 11.5-15.5 L HEMATOCRIT (test code = HCT) 30.4 % 36.0-46.0 L MEAN CELL VOLUME (test code = 111.4 fL 80-98 H MCV) MEAN CELL HGB (test code = MCH) 36.3 picogram 27.0-33.0 H MEAN CELL HGB CONCETRATION 32.6 gram/dL 33.0-36.0 L (test code = MCHC) RED CELL DISTRIBUTION WIDTH 14.1 % 11.6-16.2 N (test code = RDW) PLATELET COUNT (test code = 121 K/mm3 150-450 L PLT) MEAN PLATELET VOLUME (test code 9.5 fL 6.7-11.0 N = MPV) DRUGS OF ABUSE SCREEN [id number] 22:33:00 Test Item Value Reference Range Interpretation Comments UA PH DIPSTICK (test code = DORIS) 6.5 5.0-8.0 URN COCAINE (test code = COCAURN) <300 ng/mL URN CANNABINOIDS (test code = <50 ng/mL CANNABURN) URN AMPHETAMINE (test code = AMPHETURN) <1000 ng/mL URN BARBITURATE (test code = BARBITURN) <200 ng/mL URN BENZODIAZEPINE (test code = <200 ng/mL BENZOURN) URN OPIATES (test code = OPIATURN) <300 ng/mL URN PHENCYCLIDINE (PCP) (test code = <25 ng/mL PHENCURN) URN METHADONE (test code = METHAURN) <300 ng/mL BASIC METABOLIC [id number] 10:19:00 Test Item Value Reference Range Interpretation Comments SODIUM (test code = 132 mmol/L 136-145 L NA) POTASSIUM (test code = 3.5 mmol/L 3.5-5.1 N K) CHLORIDE (test code = 97.0 mmol/L 98-107 L CL) CARBON DIOXIDE (test 25.0 mmol/L 21-32 N code = CO2) ANION GAP (test code = 13.5 10-20 N GAP) GLUCOSE (test code = 157 mg/dL 74-106 H GLU) BLOOD UREA NITROGEN 18 mg/dL 7-18 N (test code = BUN) GLOMERULAR FILTRATION 28 mL/min >=60 Estima shai GFR by RATE (test code = GFR) using Modified MDRD formula.Chronic kidney disease is defined as [facility] kidney damageor GFR <60 mL/min/1.73 m2 for >3 months. CREATININE (test code 1.80 mg/dL 0.55-1.02 H Note change in = CREAT) reference range due to change in reagent. BUN/CREATININE RATIO 10.0 10-20 N (test code = BUN/CREA) CALCIUM (test code = 9.6 mg/dL 8.5-10.1 N CA) BASIC METABOLIC [id number] 10:13:00 Test Item Value Reference Range Interpretation Comments SODIUM (test code = NA) 132 mmol/L 136-145 L POTASSIUM (test code = K) 3.5 mmol/L 3.5-5.1 N CHLORIDE (test code = CL) 97.0 mmol/L 98-107 L CARBON DIOXIDE (test code = CO2) mmol/L 21-32 ANION GAP (test code = GAP) 10-20 GLUCOSE (test code = GLU) mg/dL 74-106 BLOOD UREA NITROGEN (test code = mg/dL 7-18 BUN) GLOMERULAR FILTRATION RATE (test mL/min >=60 code = GFR) CREATININE (test code = CREAT) mg/dL 0.55-1.02 BUN/CREATININE RATIO (test code = 10-20 BUN/CREA) CALCIUM (test code = CA) mg/dL 8.5-10.1 BASIC METABOLIC [id number] 14:52:00 Test Item Value Reference Range Interpretation Comments SODIUM (test code = 134 mmol/L 136-145 L NA) POTASSIUM (test code = 3.6 mmol/L 3.5-5.1 N K) CHLORIDE (test code = 99.0 mmol/L 98-107 N CL) CARBON DIOXIDE (test 26.0 mmol/L 21-32 N code = CO2) ANION GAP (test code = 12.6 10-20 N GAP) GLUCOSE (test code = 189 mg/dL 74-106 H GLU) BLOOD UREA NITROGEN 18 mg/dL 7-18 N (test code = BUN) GLOMERULAR FILTRATION 25 mL/min >=60 Estima shai GFR by RATE (test code = GFR) using Modified MDRD formula.Chronic kidney disease is defined as [facility] kidney damageor GFR <60 mL/min/1.73 m2 for >3 months. CREATININE (test code 2.00 mg/dL 0.55-1.02 H Note change in = CREAT) reference range due to change in reagent. BUN/CREATININE RATIO 9.0 10-20 L (test code = BUN/CREA) CALCIUM (test code = 9.5 mg/dL 8.5-10.1 N CA) BASIC METABOLIC [id number] 12:19:00 Test Item Value Reference Range Interpretation Comments SODIUM (test code = 138 mmol/L 136-145 N NA) POTASSIUM (test code 4.2 mmol/L 3.5-5.1 N = K) CHLORIDE (test code = 104.0 mmol/L 98-107 N CL) CARBON DIOXIDE (test 26.0 mmol/L 21-32 N code = CO2) ANION GAP (test code 12.2 10-20 N = GAP) GLUCOSE (test code = 102 mg/dL 74-106 N GLU) BLOOD UREA NITROGEN 18 mg/dL 7-18 N (test code = BUN) GLOMERULAR FILTRATION 33 mL/min >=60 Estima hsai GFR by RATE (test code = using Cristin fied MDRD GFR) formula.Chronic kidney disease is defined as [facility] kidney damageor GFR <60 mL/min/1.73 m2 for >3 months. CREATININE (test code 1.60 mg/dL 0.55-1.02 H Note change in = CREAT) reference range due to change in reagent. BUN/CREATININE RATIO 11.4 10-20 N (test code = BUN/CREA) CALCIUM (test code = 9.6 mg/dL 8.5-10.1 N CA) BASIC METABOLIC [id number] 12:13:00 Test Item Value Reference Range Interpretation Comments SODIUM (test code = NA) 138 mmol/L 136-145 N POTASSIUM (test code = K) 4.2 mmol/L 3.5-5.1 N CHLORIDE (test code = CL) 104.0 mmol/L 98-107 N CARBON DIOXIDE (test code = CO2) mmol/L 21-32 ANION GAP (test code = GAP) 10-20 GLUCOSE (test code = GLU) mg/dL 74-106 BLOOD UREA NITROGEN (test code = mg/dL 7-18 BUN) GLOMERULAR FILTRATION RATE (test mL/min >=60 code = GFR) CREATININE (test code = CREAT) mg/dL 0.55-1.02 BUN/CREATININE RATIO (test code 10-20 = BUN/CREA) CALCIUM (test code = CA) mg/dL 8.5-10.1 BASIC METABOLIC [id number] 06:56:00 Test Item Value Reference Range Interpretation Comments SODIUM (test code = 143 mmol/L 136-145 DELTA NA REPEATED; NA) NA 142 POTASSIUM (test code 4.5 mmol/L 3.5-5.1 N = K) CHLORIDE (test code = 110.0 mmol/L 98-107 H CL) CARBON DIOXIDE (test 25.0 mmol/L 21-32 N code = CO2) ANION GAP (test code 12.5 10-20 N = GAP) GLUCOSE (test code = 66 mg/dL 74-106 L GLU) BLOOD UREA NITROGEN 21 mg/dL 7-18 H (test code = BUN) GLOMERULAR FILTRATION 27 mL/min >=60 Estima shai GFR by RATE (test code = using Cristin fied MDRD GFR) formula.Chronic kidney disease is defined as e[facility] er kidney damageor GFR <60 mL/min/1.73 m2 for >3 months. CREATININE (test code 1.90 mg/dL 0.55-1.02 H Note change in = CREAT) reference range due to change in reagent. BUN/CREATININE RATIO 10.9 10-20 N (test code = BUN/CREA) CALCIUM (test code = 9.2 mg/dL 8.5-10.1 N CA) CBC W/AUTO [id number] 05:59:00 Test Item Value Reference Range Interpretation Comments WHITE BLOOD CELL (test code = 5.0 K/mm3 4.5-12.5 N WBC) RED BLOOD CELL (test code = 2.98 mill/mm3 3.7-5.2 L RBC) HEMOGLOBIN (test code = HGB) 10.1 gram/dL 11.5-15.5 L HEMATOCRIT (test code = HCT) 31.2 % 36.0-46.0 L MEAN CELL VOLUME (test code = 104.7 fL 80-98 H MCV) MEAN CELL HGB (test code = MCH) 33.9 picogram 27.0-33.0 H MEAN CELL HGB CONCETRATION 32.4 gram/dL 33.0-36.0 L (test code = MCHC) RED CELL DISTRIBUTION WIDTH 14.6 % 11.6-16.2 N (test code = RDW) RED CELL DISTRIBUTION WIDTH SD 56.7 fL 37.0-51.0 H (test code = RDW-SD) PLATELET COUNT (test code = 140 K/mm3 150-450 L PLT) MEAN PLATELET VOLUME (test code 10.2 fL 6.7-11.0 N = MPV) NEUTROPHIL % (test code = NT%) 37.6 % 39.0-69.0 L IMMATURE GRANULOCYTE % (test 1.0 % 0.0-5.0 N code = IG%) LYMPHOCYTE % (test code = LY%) 43.1 % 25.0-55.0 N MONOCYTE % (test code = MO%) 11.5 % 0.0-10.0 H EOSINOPHIL % (test code = EO%) 6.4 % 0.0-5.0 H BASOPHIL % (test code = BA%) 0.4 % 0.0-1.0 N NUCLEATED RBC % (test code = 0.0 % 0-0 N NRBC%) NEUTROPHIL # (test code = NT#) 1.89 K/mm3 1.8-7.7 N IMMATURE GRANULOCYTE # (test 0.05 x10 3/uL 0-0.03 H code = IG#) LYMPHOCYTE # (test code = LY#) 2.17 K/mm3 1.0-5.0 N MONOCYTE # (test code = MO#) 0.58 K/mm3 0-0.8 N EOSINOPHIL # (test code = EO#) 0.32 K/mm3 0.0-0.5 N BASOPHIL # (test code = BA#) 0.02 K/mm3 0.0-0.2 N NUCLEATED RBC # (test code = 0.00 K/mm3 0.0-0.1 N NRBC#) MANUAL DIFF REQUIRED (test code NO = MDIFF) [id number] 02:09:00 Test Item Value Reference Range Interpretation Comments TROPONIN-I (test code = TROPI) <0.015 ng/mL 0-0.045 N COMMENTS TO PILLOWCASE FOLDER: COLLECT 3 HOURS AFTER PREVIOUS SAMPLETROPONIN-I 2019-03-04 21:03:00 Test Item Value Reference Range Interpretation Comments TROPONIN-I (test code = TROPI) <0.015 ng/mL 0-0.045 N COMMENTS TO PILLOWCASE FOLDER: COLLECT 3 HOURS AFTER PREVIOUS SAMPLEDRUGS OF ABUSE SCREEN [id number] 17:09:00 Test Item Value Reference Range Interpretation Comments UA PH DIPSTICK (test 5.5 5.0-8.0 code = DORIS) URN COCAINE (test NEGATIVE <300 ng/mL code = COCAURN) URN CANNABINOIDS POSITIVE <50 ng/mL A This test p rovides only a (test code = preliminary sathish t result. CANNABURN) A morespecific alternate chemical method must be used in order t oobtain a confirmed norma tical result. Gas chromatography/ mass spectrometry (G C/MS) is thepreferred co nfirmatory method. Other c hemical confirmationmet hods are available. Clin ical consideration a nd professional ju dgment should be appli ed to any drug of abusete st result, particularly wh en preliminary pos itive resultsare used.Unconfirme d screening resul ts must not be used fornon-medical purposes (e.g., employme nt testing, legalt esting). URN AMPHETAMINE (test NEGATIVE <1000 ng/mL code = AMPHETURN) URN BARBITURATE (test NEGATIVE <200 ng/mL code = BARBITURN) URN BENZODIAZEPINE POSITIVE <200 ng/mL A This test provides only a (test code = preliminary sathish t result. BENZOURN) A morespecific alternate chemical method must be used in order t oobtain a confirmed nroma tical result. Gas chromatography/ mass spectrometry (G C/MS) is thepreferred co nfirmatory method. Other c hemical confirmationmet hods are available. Clin ical consideration a nd professional ju dgment should be appli ed to any drug of abusete st result, particularly wh en preliminary pos itive resultsare used.Unconfirme d screening resul ts must not be used fornon-medical purposes (e.g., employme nt testing, legalt esting). URN OPIATES (test NEGATIVE <300 ng/mL code = OPIATURN) URN PHENCYCLIDINE NEGATIVE <25 ng/mL (PCP) (test code = PHENCURN) URN METHADONE (test NEGATIVE <300 ng/mL code = METHAURN) DRUGS OF ABUSE SCREEN [id number] 15:19:00 Test Item Value Reference Range Interpretation Comments UA PH DIPSTICK (test 5.0-8.0 code = DORIS) URN COCAINE (test NEGATIVE <300 ng/mL code = COCAURN) URN CANNABINOIDS POSITIVE <50 ng/mL A This test p rovides only a (test code = preliminary sathish t result. CANNABURN) A morespecific alternate chemical method must be used in order t oobtain a confirmed norma tical result. Gas chromatography/ mass spectrometry (G C/MS) is thepreferred co nfirmatory method. Other c hemical confirmationmet hods are available. Clin ical consideration a nd professional ju dgment should be appli ed to any drug of abusete st result, particularly wh en preliminary pos itive resultsare used.Unconfirme d screening resul ts must not be used fornon-medical purposes (e.g., employme nt testing, legalt esting). URN AMPHETAMINE (test NEGATIVE <1000 ng/mL code = AMPHETURN) URN BARBITURATE (test NEGATIVE <200 ng/mL code = BARBITURN) URN BENZODIAZEPINE POSITIVE <200 ng/mL A This test provides only a (test code = preliminary sathish t result. BENZOURN) A morespecific alternate chemical method must be used in order t oobtain a confirmed norma tical result. Gas chromatography/ mass spectrometry (G C/MS) is thepreferred co nfirmatory method. Other c hemical confirmationmet hods are available. Clin ical consideration a nd professional ju dgment should be appli ed to any drug of abusete st result, particularly wh en preliminary pos itive resultsare used.Unconfirme d screening resul ts must not be used fornon-medical purposes (e.g., employme nt testing, legalt esting). URN OPIATES (test NEGATIVE <300 ng/mL code = OPIATURN) URN PHENCYCLIDINE NEGATIVE <25 ng/mL (PCP) (test code = PHENCURN) URN METHADONE (test NEGATIVE <300 ng/mL code = METHAURN) - XR SHOULDER 2 + V [id number] 14:01:00 FAX: Darin Lopez [place]: St: ADM Name: AGUS RODRIGUES [facility] : 1955 Age/S: 63/F [address] [facility] Unit #: [id number] Loc: [place] [address] Phys: Darin Lopez MD Acct: [id number] Dis Date: Status: ADM IN PHONE #: [phone] Exam Date: 03/04/2019 1316 FAX #: [phone] Reason: SHOULDER PAIN EXAMS: CPT CODE: [id number] XR SHOULDER 2 + [place] [address] HISTORY: SHOULDER PAIN TECHNIQUE: Internal/external rotation AP and scapular Y-views of the left shoulder. FINDINGS: No acute fracture. Glenohumeral and acromioclavicular joints are not dislocated. There appear to be posttraumatic changesinvolving the distal left clavicle. Articulating surfaces appear preserved. Regional soft tissues are unremarkable. Postsurgical changes of sternotomy are noted. Additionally there appears to been repair of multiple right-sided rib fractures. IMPRESSION: No acute bony abnormalities of the left shoulder. Post right changes of the distal left clavicle appear chronic. Location: [facility] Electronically Sign ed by Leonel Ortega MD on 03/04/2019 at 1401 Reported and signed by: Leonel Ortega MD CC: Darin Lopez MD Technologist: Elba Diane RT(R) Trnscrd Date/Time/By: 03/04/2019 (2683) : By: Luis [email or web address] Print D/T: S: 03/04/2019 (2042) PAGE 1 Signed Report- CT C-SPINE W/O [id number] 13:16:00 Name: AGUS RODRIGUES [facility] : 1955 Age/S: 63 / F [address] [facility] Unit #: [id number] Loc: [place] [address] Phys: Darin Lopez MD Acct: [id number] Dis Date: Status: REG ER PHONE #: [phone] Exam Date: 03/04/2019 1246 FAX #: [phone] Reason: Neck Pain EXAMS: CPT CODE: [id number] C-SPINE W/O CONTRAST 54011 HISTORY: HEADACHE. recent fall on blood thinners TECHNIQUE: Noncontrast 2.[address] of the head and cervical spine. Examination acquired within 24 hours of arrival. Automated exposure control for dose reduction. COMPARISON: Noncontrast CT scan of the brain and cervical spine February 13, 2019 FINDINGS: Images of the brain are degraded by patient motion. No lacerations or contusions of the scalp or facial soft tissues. No gross fractures are seen however subtle fractures may be obscured due to degradation of images. No acute hemorrhage. No intracranial mass, mass effect, or midline shift. No effacement of the sulci or lancaster-white matter interface. There is d iffuse cortical atrophy with microvascular ischemic changes of the white matter that appear similarto the prior exam. Visualized paranasal sinuses are clear. Mastoid air cells and middle ear cavitiesare clear. The globes are grossly unremarkable. Postsurgical changes of inferior orbital wall repairare noted. No acute fracture of the cervical spine. No subluxation. Craniocervical and cervicothoracic articulations are appropriate. Mild vertebral body height loss at C3-C6 is present. There is also height loss of the C5-C6 and to a lesser extent the C3-C4 discs. There is mild bilateral foraminal narrowing at C3-C4. There is severe bilateral foraminal narrowing and mild to moderate central canal narrowing at C5-C6. No prevertebral or paraspinal soft tissue abnormality. There is centrilobular emphysema in the upper lobes. Atherosclerotic disease is present in the aorta and great vessels. Prior sternotomy. IMPRESSION: No acute intracranial process. Please note that due to image image degradation, evaluation for subtle bony abnormalities is limited. Cortical atrophy and microvascular ischemic changes of the white PAGE 1 Signed Report (CONTINUED) Name: AGUS RODRIGUES [facility] : 1955ge/S: 63 / [address] [facility] Unit #: [id number] Loc: [place] [address] [id number] Dis Date: Status: REG ER PHONE #: [phone] Exam Date: 03/04/2019 1246 FAX #: [phone] Reason: Neck Pain EXAMS: CPT CODE: [id number] CT C-SPINE W/O CONTRAST 56111 <Continued> matter appears similar to the previous exam. Degenerative changes of the cervical spine with foraminal narrowing as above. However no fracture or subluxation is seen. Location: [facility] at 1316 Reported and signed by: Leonel Ortega MD CC: Darin Lopez MD Technologist:Brandie Coulter RT(R),CT CTDI: DLP: Trnscb Date/Time: 03/04/2019 (1316) [email or web address] Orig Print D/T: S: 03/04/2019 (2907) PAGE 2 Signed Report- CT HEAD/BRAIN W/O [id number] 13:16:00 Name: AGUS RODRIGUES [facility] : 1955 Age/S: 63 / F [address] [facility] [facility] Unit #: [id number] Loc: [place] [address] Phys: Darin Lopez MD Acct: [id number] Dis Date: Status: REG ER PHONE#: [phone] Exam Date: 03/04/2019 1246 FAX #: [phone] Reason: HEADACHE. recent fall on blood thinners EXAMS: CPT CODE: [id number] CT HEAD/BRAIN W/O CONT 71223 HISTORY: HEADACHE. recent fall on blood thinners TECHNIQUE: Noncontrast 2.[address] of the head and cervical spine. Examination acquired within 24 hours of arrival. Automated exposure control for dose reduction. COMPARISON: Noncontrast CT scan of the brain and cervical spine February 13, 2019 FINDINGS: Images of the brain are degraded by patient motion. No lacerations or contusions of the scalp or facial soft tissues. No gross fractures are seen however subtle fractures may be obscured due to degradation of images. No acute hemorrhage. No intracranial mass, mass effect, or midline shift. No effacement of the sulci or lancaster-white matter interface. There is diffuse cortical atrophy with microvascular ischemic changes of the white matter that appear similar to the prior exam. Visualized paranasal sinuses are clear. Mastoid air cells and middle ear cavities are clear. The globes are grossly unremarkable. Postsurgical changes of inferior orbital wall repair are noted. No acute fracture of the cervical spine. No subluxation. Craniocervical and cervicothoracic articulations are appropriate. Mild vertebral body height loss at C3-C6 is present. There is also height loss of the C5-C6 and to a lesser extent the C3-C4 discs. There is mild bilateral foraminal narrowing at C3-C4. There is severe bilateral foraminal narrowing and mild tomoderate central canal narrowing at C5-C6. No prevertebral or paraspinal soft tissue abnormality. There is centrilobular emphysema in the upper lobes. Atherosclerotic disease is present in the aorta and great vessels. Prior sternotomy. IMPRESSION: No acute intracranial process. Please note that due to image image degradation, evaluation for subtle bony abnormalities is limited. Cortical atrophy and microvascular ischemic changes of the white PAGE 1 Signed Report (CONTINUED) Name: AGUS RODRIGUES [facility] : 1955 Age/S: 63 / F [address] [facility] Unit #: [id number] Loc: [place] [address] Phys: Darin Lopez MD Acct: [id number] Dis Date: Status: REG ER PHONE #: [phone] Exam Date: 03/04/2019 1246 FAX #: [phone] Reason: HEADACHE. recent fall on blood thinners EXAMS: CPT CODE: [id number] CT HEAD/BRAIN W/O CONT 28481 <Continued> matter appears similar to the previous exam. Degenerative changes of the cervical spine with foraminal narrowing as above. However no fractureor subluxation is seen. Location: [facility] at 1316 Reported and signed by: Leonel Ortega MD CC: Darin Lopez MD Technologist:Brandie Coulter RT(R),CT CTDI: DLP: Trnscb Date/Time: 03/04/2019 (1316) [email or web address] Orig Print D/T: S: 03/04/2019 (2309) PAGE 2 Signed ReportPROTHROMBIN [id number] 12:33:00 Test Item Value Reference Range Interpretation Comments PROTHROMBIN TIME 13.9 seconds 9.0-14.0 N PATIENT (test code = PTP) INTERNATIONAL NORMAL 1.2 0.8-1.2 N The the rapeutic range RATIO (test code = for oral INR) anticoagulant t herapy formost indicat ions is an internati onal normalized rati o (INR)of between 2.0 and 3.0. The recommended therapeutic INR range for various cli nical situations is l isted below: Clinical Situat ion INR range Pulmonary embol ism treatment (2.0-3.0)Venous thrombosis treatmentVenous thrombosis prophylaxis (hi gh risk surgery)Prevent ion of systemic emboli sm from: Acute myocardial infa rction Valvular heart disease Atrial fibrillation Mechanical pros thetic heart valves (2.5-3.5) IS PATIENT ON ANTICOAGULANTS? NTHROMBOPLASTIN TIME [id number] 12:33:00 Test Item Value Reference Range Interpretation Comments THROMBOPLASTIN TIME PARTIAL 32.2 seconds 25.0-36.5 N (test code = PTT) IS PATIENT ON ANTICOAGULANTS? NBASIC METABOLIC [id number] 12:27:00 Test Item Value Reference Range Interpretation Comments SODIUM (test code = 135 mmol/L 136-145 L NA) POTASSIUM (test code 4.3 mmol/L 3.5-5.1 N = K) CHLORIDE (test code = 104.0 mmol/L 98-107 N CL) CARBON DIOXIDE (test 22.0 mmol/L 21-32 N code = CO2) ANION GAP (test code 13.3 10-20 N = GAP) GLUCOSE (test code = 68 mg/dL 74-106 L GLU) BLOOD UREA NITROGEN 25 mg/dL 7-18 H (test code = BUN) GLOMERULAR FILTRATION 19 mL/min >=60 Estima shai GFR by RATE (test code = using Cristin fied MDRD GFR) formula.Chronic kidney disease is defined as [facility] kidney damageor GFR <60 mL/min/1.73 m2 for >3 months. CREATININE (test code 2.50 mg/dL 0.55-1.02 H Note change in = CREAT) reference range due to change in reagent. BUN/CREATININE RATIO 10.0 10-20 N (test code = BUN/CREA) CALCIUM (test code = 9.6 mg/dL 8.5-10.1 N CA) [id number] 12:27:00 Test Item Value Reference Range Interpretation Comments TROPONIN-I (test code = TROPI) <0.015 ng/mL 0-0.045 N URINALYSIS [id number] 12:21:00 Test Item Value Reference Range Interpretation Comments UA COLOR (test code = YELLOW YELLOW COLU) UA APPEARANCE (test code Cloudy CLEAR A = APPU) UA GLUCOSE DIPSTICK (test NEGATIVE mg/dL NEGATIVE code = DGLUU) UA BILIRUBIN DIPSTICK NEGATIVE mg/dL NEGATIVE (test code = BILU) UA KETONE DIPSTICK (test NEGATIVE mg/dL NEGATIVE code = KETU) UA SPECIFIC GRAVITY (test 1.021 1.001-1.035 code = SGU) UA BLOOD DIPSTICK (test Negative mg/dL NEGATIVE code = JOSTIN) UA PH DIPSTICK (test code 5.5 5.0-8.0 = DORIS) UA PROTEIN DIPSTICK (test 30 (1+) mg/dL NEGATIVE A code = PROU) UA UROBILINIOGEN DIPSTICK 3.0 (1+) mg/dL NEGATIVE A (test code = URO) UA NITRITE DIPSTICK (test NEGATIVE NEGATIVE code = JUAN) UA LEUKOCYTE ESTERASE W 500 Yfn/uL (3+) NEGATIVE A REFLEX (test code = Yfn/uL LEUUR) UA WBC (test code = WBCU) 51-100 per HPF 0-5 A UA RBC (test code = RBCU) 11-20 #/HPF 0-5 A UA EPITHELIAL CELLS (test MANY per HPF FEW code = EPIU) UA BACTERIA (test code = FEW #/HPF NONE A BACU) UA HYALINE CAST (test 11-20 #/LPF 0-5 A code = HYALU) UA MUCUS (test code = FEW #/LPF FEW MUCU) Urine Source? Clean CatchBASIC METABOLIC [id number] 12:19:00 Test Item Value Reference Range Interpretation Comments SODIUM (test code = NA) 135 mmol/L 136-145 L POTASSIUM (test code = K) 4.3 mmol/L 3.5-5.1 N CHLORIDE (test code = CL) 104.0 mmol/L 98-107 N CARBON DIOXIDE (test code = CO2) mmol/L 21-32 ANION GAP (test code = GAP) 10-20 GLUCOSE (test code = GLU) mg/dL 74-106 BLOOD UREA NITROGEN (test code = mg/dL 7-18 BUN) GLOMERULAR FILTRATION RATE (test mL/min >=60 code = GFR) CREATININE (test code = CREAT) mg/dL 0.55-1.02 BUN/CREATININE RATIO (test code 10-20 = BUN/CREA) CALCIUM (test code = CA) mg/dL 8.5-10.1 [id number] 12:19:00 Test Item Value Reference Range Interpretation Comments TROPONIN-I (test code = TROPI) ng/mL 0-0.045 CBC W/O [id number] 12:16:00 Test Item Value Reference Range Interpretation Comments WHITE BLOOD CELL (test code = 6.6 K/mm3 4.5-12.5 N WBC) RED BLOOD CELL (test code = 3.17 mill/mm3 3.7-5.2 L RBC) HEMOGLOBIN (test code = HGB) 10.8 gram/dL 11.5-15.5 L HEMATOCRIT (test code = HCT) 33.4 % 36.0-46.0 L MEAN CELL VOLUME (test code = 105.4 fL 80-98 H MCV) MEAN CELL HGB (test code = MCH) 34.1 picogram 27.0-33.0 H MEAN CELL HGB CONCETRATION 32.3 gram/dL 33.0-36.0 L (test code = MCHC) RED CELL DISTRIBUTION WIDTH 14.7 % 11.6-16.2 N (test code = RDW) PLATELET COUNT (test code = 160 K/mm3 150-450 N PLT) MEAN PLATELET VOLUME (test code 10.2 fL 6.7-11.0 N = MPV) [id number] 12:25:00 Test Item Value Reference Range Interpretation Comments GLUBED (test code = 99 mg/dL 74-106 N 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[facility] [id number] 06:23:00 Test Item Value Reference Range Interpretation Comments GLUBED (test code = 98 mg/dL 74-106 N 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[facility] [id number] 20:36:00 Test Item Value Reference Range Interpretation Comments GLUBED (test code = 100 mg/dL 74-106 N 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[facility] [id number] 16:29:00 Test Item Value Reference Range Interpretation Comments GLUBED (test code = 95 mg/dL 74-106 N 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[facility] THYROID PROFILE [id number] 12:53:00 Test Item Value Reference Range Interpretation Comments T3 UPTAKE (test code = 39.0 % 30.0-40.0 N T3UP) T4 (THYROXINE) (test 10.3 ug/dL 4.5-13.9 N code = T4) T7 (FREE THYROXINE 4.01 FTI 1.3-5.1 N INDEX) (test code = T7) THYROID STIMULATING 0.051 uIU/mL 0.36-3.74 L TSH REFE RENCE HORMONE (test code = RANGES: EUTHYROID: TSH) 0.35 - 4.3 mIU/ mL HYPO : > 5.5 mI U/mL HYPER : < 0.35 mIU/mL [id number] 12:44:00 Test Item Value Reference Range Interpretation Comments GLUBED (test code = 112 mg/dL 74-106 H 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[facility] BASIC METABOLIC [id number] 12:43:00 Test Item Value Reference Range Interpretation Comments SODIUM (test code = 142 mmol/L 136-145 N NA) POTASSIUM (test code 4.2 mmol/L 3.5-5.1 N = K) CHLORIDE (test code = 111.0 mmol/L 98-107 H CL) CARBON DIOXIDE (test 24.0 mmol/L 21-32 N code = CO2) ANION GAP (test code 11.2 10-20 N = GAP) GLUCOSE (test code = 102 mg/dL 74-106 N GLU) BLOOD UREA NITROGEN 17 mg/dL 7-18 N (test code = BUN) GLOMERULAR FILTRATION 35 mL/min >=60 Estima shai GFR by RATE (test code = using Cristin fied MDRD GFR) formula.Chronic kidney disease is defined as eith er kidney damageor GFR <60 mL/min/1.73 m2 for >3 months. CREATININE (test code 1.50 mg/dL 0.55-1.02 H Note change in = CREAT) reference range due to change in reagent. BUN/CREATININE RATIO 11.2 10-20 N (test code = BUN/CREA) CALCIUM (test code = 9.1 mg/dL 8.5-10.1 N CA) BASIC METABOLIC [id number] 12:37:00 Test Item Value Reference Range Interpretation Comments SODIUM (test code = NA) 142 mmol/L 136-145 N POTASSIUM (test code = K) 4.2 mmol/L 3.5-5.1 N CHLORIDE (test code = CL) 111.0 mmol/L 98-107 H CARBON DIOXIDE (test code = CO2) mmol/L 21-32 ANION GAP (test code = GAP) 10-20 GLUCOSE (test code = GLU) mg/dL 74-106 BLOOD UREA NITROGEN (test code = mg/dL 7-18 BUN) GLOMERULAR FILTRATION RATE (test mL/min >=60 code = GFR) CREATININE (test code = CREAT) mg/dL 0.55-1.02 BUN/CREATININE RATIO (test code 10-20 = BUN/CREA) CALCIUM (test code = CA) mg/dL 8.5-10.1 [id number] 06:05:00 Test Item Value Reference Range Interpretation Comments GLUBED (test code = 109 mg/dL 74-106 H 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[facility] [id number] 04:17:00 Test Item Value Reference Range Interpretation Comments GLUBED (test code = 111 mg/dL 74-106 H 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[facility] BASIC METABOLIC [id number] 10:38:00 Test Item Value Reference Range Interpretation Comments SODIUM (test code = 142 mmol/L 136-145 N NA) POTASSIUM (test code 4.6 mmol/L 3.5-5.1 N = K) CHLORIDE (test code = 109.0 mmol/L 98-107 H CL) CARBON DIOXIDE (test 26.0 mmol/L 21-32 N code = CO2) ANION GAP (test code 11.6 10-20 N = GAP) GLUCOSE (test code = 61 mg/dL 74-106 L GLU) BLOOD UREA NITROGEN 28 mg/dL 7-18 H (test code = BUN) GLOMERULAR FILTRATION 17 mL/min >=60 Estima shai GFR by RATE (test code = using Cristin fied MDRD GFR) formula.Chronic kidney disease is defined as eith er kidney damageor GFR <60 mL/min/1.73 m2 for >3 months. CREATININE (test code 2.80 mg/dL 0.55-1.02 H Note change in = CREAT) reference range due to change in reagent. BUN/CREATININE RATIO 9.9 10-20 L (test code = BUN/CREA) CALCIUM (test code = 8.8 mg/dL 8.5-10.1 N CA) CBC W/AUTO [id number] 10:33:00 Test Item Value Reference Range Interpretation Comments WHITE BLOOD CELL (test code = 6.3 K/mm3 4.5-12.5 N WBC) RED BLOOD CELL (test code = 2.85 mill/mm3 3.7-5.2 L RBC) HEMOGLOBIN (test code = HGB) 9.9 gram/dL 11.5-15.5 L HEMATOCRIT (test code = HCT) 30.0 % 36.0-46.0 L MEAN CELL VOLUME (test code = 105.3 fL 80-98 H MCV) MEAN CELL HGB (test code = MCH) 34.7 picogram 27.0-33.0 H MEAN CELL HGB CONCETRATION 33.0 gram/dL 33.0-36.0 N (test code = MCHC) RED CELL DISTRIBUTION WIDTH 14.5 % 11.6-16.2 N (test code = RDW) RED CELL DISTRIBUTION WIDTH SD 55.9 fL 37.0-51.0 H (test code = RDW-SD) PLATELET COUNT (test code = 185 K/mm3 150-450 N PLT) MEAN PLATELET VOLUME (test code 10.1 fL 6.7-11.0 N = MPV) NEUTROPHIL % (test code = NT%) 34.0 % 39.0-69.0 L IMMATURE GRANULOCYTE % (test 0.8 % 0.0-5.0 N code = IG%) LYMPHOCYTE % (test code = LY%) 49.3 % 25.0-55.0 N MONOCYTE % (test code = MO%) 10.2 % 0.0-10.0 H EOSINOPHIL % (test code = EO%) 5.1 % 0.0-5.0 H BASOPHIL % (test code = BA%) 0.6 % 0.0-1.0 N NUCLEATED RBC % (test code = 0.0 % 0-0 N NRBC%) NEUTROPHIL # (test code = NT#) 2.12 K/mm3 1.8-7.7 N IMMATURE GRANULOCYTE # (test 0.05 x10 3/uL 0-0.03 H code = IG#) LYMPHOCYTE # (test code = LY#) 3.08 K/mm3 1.0-5.0 N MONOCYTE # (test code = MO#) 0.64 K/mm3 0-0.8 N EOSINOPHIL # (test code = EO#) 0.32 K/mm3 0.0-0.5 N BASOPHIL # (test code = BA#) 0.04 K/mm3 0.0-0.2 N NUCLEATED RBC # (test code = 0.00 K/mm3 0.0-0.1 N NRBC#) [id number] 10:13:00 Test Item Value Reference Range Interpretation Comments GLUBED (test code = 190 mg/dL 74-106 H 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[facility] [id number] 08:30:00 Test Item Value Reference Range Interpretation Comments GLUBED (test code = 49 mg/dL 74-106 LL 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~ [id number] 07:43:00 Test Item Value Reference Range Interpretation Comments TROPONIN-I (test code = TROPI) <0.015 ng/mL 0-0.045 N COMMENTS TO PILLOWCASE FOLDER: COLLECT 3 HOURS AFTER PREVIOUS SAMPLETROPONIN-I 2019-02-14 03:57:00 Test Item Value Reference Range Interpretation Comments TROPONIN-I (test code = TROPI) <0.015 ng/mL 0-0.045 N COMMENTS TO PILLOWCASE FOLDER: COLLECT 3 HOURS AFTER PREVIOUS SAMPLECREATINE KINASE (CK)2019-02-13 21:16:00 Test Item Value Reference Range Interpretation Comments CREATINE KINASE (CK) (test code = 64 IUnit/L 26-208 N CK) - CT C-SPINE W/O [id number] 20:36:00 Name: AGUS RODRIGUES [facility] : 1955 Age/S: 63 / F [address] [facility] Unit #: [id number]: [place] [address] Phys: Elissa Sepulveda DO Acct: [id number] Dis Date: Status: REG ER PHONE #: [phone] Exam Date: 02/13/20192009 FAX #: [phone] Reason: Neck Pain EXAMS: CPT CODE: [id number] CT C-SPINE W/O CONTRAST 22904 HISTORY: Neck Pain TECHNIQUE: 2.[address] of the cervical spine. Sagittal and coronal reformatted images were generated. Automated exposure control for dose reduct ion. COMPARISON: None FINDINGS: Craniocervical and cervicothoracic articulations are appropriate. Vertebral body alignment is satisfactory. Vertebral body heights are preserved.. Moderate C3-C4 and severe C5-C6 disc space loss with disc/osteophyte complex and bilateral uncovertebral arthrosis. Mild disc space loss with mild disc bulge at other cervical levels. Mild cervical facet arthrosis. Mild central canal and severe bilateral foraminal stenosis at C5-C6. No prevertebral or paraspinal soft tissueabnormality. Atherosclerotic vascular calcification of the carotid bifurcations and aortic arch. Lung apices are clear. IMPRESSION: No acute fracture or subluxation of the cervical spine. LOCATION: at 2036 Reported and signed by: Geovanna Cortez D.O. CC: Elissa Sepulveda DO Technologist:Ben Rivera RT(R)(CT) CTDI: DLP: Trnscb Date/Time: 02/13/2019 (2035) [email or web address] Orig Print D/T: S: 02/13/2019 (2039) PAGE 1 Signed Report- CT HEAD/BRAIN W/O [id number] 20:34:00 Name: AGUS RODRIGUES [facility] : 1955 Age/S: 63 [facility] [address] [facility]: [id number] Loc: [place] [address] Phys: Elissa Sepulveda DO Acct: [id number] Dis Date: Status: REG ER PHONE #: [phone] Exam Date: 02/13/20192009 FAX #: [phone] Reason: HEADACHE EXAMS: CPT CODE: [id number] CT HEAD/BRAIN W/O CONT 16218 HISTORY: HEADACHE TECHNIQUE: Noncontrast 2.[address] of the head. Examination acquired within 24 hours of arrival. Automated exposure control for dose reduction; DLP: 874 mGy-cm. COMPARISON: 10/24/18 FINDINGS: No acute hemorrhage. No CT evidence of acute infarct. Mild periventricular chronic microvascular ischemic changes. No intracranial mass or mass effect. Mild parenchymal atrophy. No hydrocephalus. No extra-axial fluid collection. Atherosclerotic vascular calcification of the carotid siphons. Visualized paranasal sinuses are clear. Mastoid air cells and middle ear cavities are clear. Previous right orbital floor mesh repair. Orbital contents are unremarkable. Calvarium and skull base are intact. IMPRESSION: No acute intracranial process. LOCATION: [place] ctronically Signed by Geovanna Cortez D.O. on 02/13/2019 at 2033 Reported and signed by: Geovanna Cortez D.O.CC: Elissa Sepulveda DO Technologist:RT Crescencio(R)(CT) CTDI: DLP: Trnscb Date/Time: 02/13/2019 (2033) [email or web address] Orig Print D/T: S: 02/13/2019 (2036) PAGE 1 Signed ReportB-TYPE NATRIURETIC PEPTIDE 2019-02-13 20:06:00 Test Item Value Reference Range Interpretation Comments B-TYPE NATRIURETIC PEPTIDE 130.75 pgram/mL 0-100 H (test code = BNP) PROTHROMBIN [id number] 19:49:00 Test Item Value Reference Range Interpretation Comments PROTHROMBIN TIME 13.5 seconds 9.0-14.0 N PATIENT (test code = PTP) INTERNATIONAL NORMAL 1.2 0.8-1.2 N The the rapeutic range RATIO (test code = for oral INR) anticoagulant t herapy formost indicat ions is an internati onal normalized rati o (INR)of between 2.0 and 3.0. The recommended therapeutic INR range for various cli nical situations is l isted below: Clinical Situat ion INR range Pulmonary embol ism treatment (2.0-3.0)Venous thrombosis treatmentVenous thrombosis prophylaxis (hi gh risk surgery)Prevent ion of systemic emboli sm from: Acute myocardial infa rction Valvular heart disease Atrial fibrillation Mechanical pros thetic heart valves (2.5-3.5) IS PATIENT ON ANTICOAGULANTS? NTHROMBOPLASTIN TIME [id number] 19:49:00 Test Item Value Reference Range Interpretation Comments THROMBOPLASTIN TIME PARTIAL 32.6 seconds 25.0-36.5 N (test code = PTT) IS PATIENT ON ANTICOAGULANTS? NHEPATIC FUNCTION [id number] 19:49:00 Test Item Value Reference Range Interpretation Comments TOTAL PROTEIN (test 6.6 gram/dL 6.4-8.2 N code = PROT) ALBUMIN (test code = 3.3 g/dL 3.4-5.0 L ALB) GLOBULIN (test code = 3.3 gram/dL 2.7-4.2 N GLOB) ALBUMIN/GLOBULIN RATIO 1.0 0.75-1.50 N (test code = A/G) BILIRUBIN TOTAL (test 0.70 mg/dL 0.0-1.0 N code = BILT) BILIRUBIN DIRECT (test 0.23 mg/dL 0.0-0.20 H code = BILD) SGOT/AST (test code = 14 IUnit/L 15-37 L AST) SGPT/ALT (test code = 10 IUnit/L 12-78 L ALT) ALKALINE PHOSPHATASE 61 IUnit/L 45-117 N Note change in TOTAL (test code = reference range due ALKP) to change in reagent. [id number] 19:49:00 Test Item Value Reference Range Interpretation Comments LIPASE (test code = LIP) 29 U/L 73.0-393.0 L BASIC METABOLIC [id number] 19:49:00 Test Item Value Reference Range Interpretation Comments SODIUM (test code = 138 mmol/L 136-145 N NA) POTASSIUM (test code 4.9 mmol/L 3.5-5.1 N = K) CHLORIDE (test code = 103.0 mmol/L 98-107 N CL) CARBON DIOXIDE (test 27.0 mmol/L 21-32 N code = CO2) ANION GAP (test code 12.9 10-20 N = GAP) GLUCOSE (test code = 133 mg/dL 74-106 H GLU) BLOOD UREA NITROGEN 28 mg/dL 7-18 H (test code = BUN) GLOMERULAR FILTRATION 15 mL/min >=60 Estima shai GFR by RATE (test code = using Cristin fied MDRD GFR) formula.Chronic kidney disease is defined as [facility] er kidney damageor GFR <60 mL/min/1.73 m2 for >3 months. CREATININE (test code 3.20 mg/dL 0.55-1.02 H Note change in = CREAT) reference range due to change in reagent. BUN/CREATININE RATIO 8.7 10-20 L (test code = BUN/CREA) CALCIUM (test code = 9.5 mg/dL 8.5-10.1 N CA) [id number] 19:49:00 Test Item Value Reference Range Interpretation Comments TROPONIN-I (test code = TROPI) <0.015 ng/mL 0-0.045 N - XR CHEST 1 [id number] 19:48:00 FAX: Elissa Sepulveda DO [place]: B St: REG Name: AGUS RODRIGUES [facility] : 1955 Age/S: 63/F [address] Unit #: [id number] Loc: [place] [address] Phys: Elissa Sepulveda DO Acct: [id number] Dis Date:Status: REG ER PHONE #: [phone] Exam Date: 02/13/20191938 FAX #: [phone] Reason: CHEST PAIN EXAMS: CPT CODE: [id number] XR CHEST 1 V 97196 HISTORY: CHEST PAIN TECHNIQUE: AP chest x-ray COMPARISON: 11/09/18 FINDINGS: No airspace consolidation or pleural effusion. Mild cardiomegaly. Mediastinal silhouette is unremarkable. Sternotomy fixation hardware. Thoracic spondylosis. Healed proximal right humerus fracture deformity. IMPRESSION: No acute findings or significant interval change. LOCATION: LP at 1947 Reported and signed by: Gregorio Mitchell CC: Elissa Sepulveda DO Technologist: RT JAYDON(Melanie) Trnscrd Date/Time/By: 02/13/2019 (1947) : By: Luis [email or web address] Orig Print D/T: S: 02/13/2019 (1951) PAGE 1 Signed ReportBASIC METABOLIC PANEL 2019-02-13 19:40:00 Test Item Value Reference Range Interpretation Comments SODIUM (test code = NA) 138 mmol/L 136-145 N POTASSIUM (test code = K) 4.9 mmol/L 3.5-5.1 N CHLORIDE (test code = CL) 103.0 mmol/L 98-107 N CARBON DIOXIDE (test code = CO2) mmol/L 21-32 ANION GAP (test code = GAP) 10-20 GLUCOSE (test code = GLU) mg/dL 74-106 BLOOD UREA NITROGEN (test code = mg/dL 7-18 BUN) GLOMERULAR FILTRATION RATE (test mL/min >=60 code = GFR) CREATININE (test code = CREAT) mg/dL 0.55-1.02 BUN/CREATININE RATIO (test code 10-20 = BUN/CREA) CALCIUM (test code = CA) mg/dL 8.5-10.1 [id number] 19:40:00 Test Item Value Reference Range Interpretation Comments TROPONIN-I (test code = TROPI) ng/mL 0-0.045 CBC W/O [id number] 19:38:00 Test Item Value Reference Range Interpretation Comments WHITE BLOOD CELL (test code = 6.5 K/mm3 4.5-12.5 N WBC) RED BLOOD CELL (test code = 2.98 mill/mm3 3.7-5.2 L RBC) HEMOGLOBIN (test code = HGB) 10.3 gram/dL 11.5-15.5 L HEMATOCRIT (test code = HCT) 31.4 % 36.0-46.0 L MEAN CELL VOLUME (test code = 105.4 fL 80-98 H MCV) MEAN CELL HGB (test code = MCH) 34.6 picogram 27.0-33.0 H MEAN CELL HGB CONCETRATION 32.8 gram/dL 33.0-36.0 L (test code = MCHC) RED CELL DISTRIBUTION WIDTH 14.4 % 11.6-16.2 N (test code = RDW) PLATELET COUNT (test code = 167 K/mm3 150-450 N PLT) MEAN PLATELET VOLUME (test code 9.4 fL 6.7-11.0 N = MPV) TROPONIN I [id number] 19:29:00 Test Item Value Reference Range Interpretation Comments TROPONIN I RAPID 0.02 ng/mL <0.08 Please Note New (test code = Reference Range TROPIRAP) 0.00-0.079 ng/m L - Negative>or= 0. 08 ng/mL - Positive The us e of serial sampling and te sting protocol is are commended practice.An skyler vated troponin level alone is often not suffi cient fordiagnosis of myocardial infarction. Tro ponin results obtaine d by different assay s may vary.Evaluation of the extent of myoca rdial damage based on increase of troponin would be valid only if similar methodology is used. UR ELECTROPHORESIS SUNITA [id number] 16:08:00 Test Item Value Reference Range Interpretation Comments IMMUNOFIXATION URINE SCREEN () An appa rent normal (test code = IMMFIXU) immuno fixation pattern. UR TOTAL PROTEIN 10.2 mg/dL Not Estab. (test code = PROTEU) UR [id number] 4.5 % () (test code = A1GU) UR [id number]-3-[id number] 18.0 % () (test code = A2GU) UR BETA GLOBULIN 27.2 % () (test code = BGU) UR GAMMA GLOBULIN 15.8 % () (test code = GGU) MONOCLONAL SPIKE Not Observed % Not Observed (test code = MONOSPIKE) UR ALBUMIN QUANT 34.5 % () (test code = ALBU) UR NA,[id number] 16:08:00 Test Item Value Reference Range Interpretation Comments UR NA,RANDOM (test code = SHAWN) 55 mmol/L 20-110 N UR PROTEIN/CREATININE [id number] 16:08:00 Test Item Value Reference Range Interpretation Comments UR PROTEIN RANDOM 14.4 mg/dL 0.0-11.9 H Protein le vels may be (test code = PROTU) falsely elevated in patients withel evated level of aminog lycoside antibiotics in CSF and inhighly concen trated urine specimens . If false elevation issuspected, co ntact lab for alterna shai testing techniq ue. UR CREATININE 127.0 mg/dL 30-125 H RANDOM (test code = CREATU) PROTEIN/CREATININE 0.11 RATIO 0.0-0.20 N RATIO (test code = P/CRATIO) BASIC METABOLIC [id number] 07:05:00 Test Item Value Reference Range Interpretation Comments SODIUM (test code = 141 mmol/L 136-145 N NA) POTASSIUM (test code 3.7 mmol/L 3.5-5.1 N = K) CHLORIDE (test code = 110.0 mmol/L 98-107 H CL) CARBON DIOXIDE (test 19.0 mmol/L 21-32 L code = CO2) ANION GAP (test code 15.7 10-20 N = GAP) GLUCOSE (test code = 102 mg/dL 74-106 N GLU) BLOOD UREA NITROGEN 22 mg/dL 7-18 H RESULT V ERIFIED BY (test code = BUN) REPEAT NADIRA LYSIS GLOMERULAR FILTRATION 46 mL/min >=60 Estima shai GFR by RATE (test code = using Cristin fied MDRD GFR) formula.Chronic kidney disease is defined as eith er kidney damageor GFR <60 mL/min/1.73 m2 for >3 months. CREATININE (test code 1.20 mg/dL 0.55-1.02 H Note change in = CREAT) reference range due to change in reagent. BUN/CREATININE RATIO 18.3 10-20 N (test code = BUN/CREA) CALCIUM (test code = 8.8 mg/dL 8.5-10.1 N CA) BASIC METABOLIC [id number] 06:29:00 Test Item Value Reference Range Interpretation Comments SODIUM (test code = NA) 141 mmol/L 136-145 N POTASSIUM (test code = K) 3.7 mmol/L 3.5-5.1 N CHLORIDE (test code = CL) 110.0 mmol/L 98-107 H CARBON DIOXIDE (test code = CO2) mmol/L 21-32 ANION GAP (test code = GAP) 10-20 GLUCOSE (test code = GLU) mg/dL 74-106 BLOOD UREA NITROGEN (test code = mg/dL 7-18 BUN) GLOMERULAR FILTRATION RATE (test mL/min >=60 code = GFR) CREATININE (test code = CREAT) mg/dL 0.55-1.02 BUN/CREATININE RATIO (test code 10-20 = BUN/CREA) CALCIUM (test code = CA) mg/dL 8.5-10.1 CBC W/AUTO [id number] 06:01:00 Test Item Value Reference Range Interpretation Comments WHITE BLOOD CELL (test code = 7.6 K/mm3 4.5-12.5 N WBC) RED BLOOD CELL (test code = 2.81 mill/mm3 3.7-5.2 L RBC) HEMOGLOBIN (test code = HGB) 9.3 gram/dL 11.5-15.5 L HEMATOCRIT (test code = HCT) 27.7 % 36.0-46.0 L MEAN CELL VOLUME (test code = 98.6 fL 80-98 H MCV) MEAN CELL HGB (test code = MCH) 33.1 picogram 27.0-33.0 H MEAN CELL HGB CONCETRATION 33.6 gram/dL 33.0-36.0 N (test code = MCHC) RED CELL DISTRIBUTION WIDTH 14.6 % 11.6-16.2 N (test code = RDW) RED CELL DISTRIBUTION WIDTH SD 51.8 fL 37.0-51.0 H (test code = RDW-SD) PLATELET COUNT (test code = 150 K/mm3 150-450 N PLT) MEAN PLATELET VOLUME (test code 9.3 fL 6.7-11.0 N = MPV) NEUTROPHIL % (test code = NT%) 51.6 % 39.0-69.0 N IMMATURE GRANULOCYTE % (test 0.4 % 0.0-5.0 N code = IG%) LYMPHOCYTE % (test code = LY%) 35.7 % 25.0-55.0 N MONOCYTE % (test code = MO%) 7.9 % 0.0-10.0 N EOSINOPHIL % (test code = EO%) 3.9 % 0.0-5.0 N BASOPHIL % (test code = BA%) 0.5 % 0.0-1.0 N NUCLEATED RBC % (test code = 0.0 % 0-0 N NRBC%) NEUTROPHIL # (test code = NT#) 3.92 K/mm3 1.8-7.7 N IMMATURE GRANULOCYTE # (test 0.03 x10 3/uL 0-0.03 N code = IG#) LYMPHOCYTE # (test code = LY#) 2.71 K/mm3 1.0-5.0 N MONOCYTE # (test code = MO#) 0.60 K/mm3 0-0.8 N EOSINOPHIL # (test code = EO#) 0.30 K/mm3 0.0-0.5 N BASOPHIL # (test code = BA#) 0.04 K/mm3 0.0-0.2 N NUCLEATED RBC # (test code = 0.00 K/mm3 0.0-0.1 N NRBC#) MANUAL DIFF REQUIRED (test code NO = MDIFF) UR ELECTROPHORESIS IRONKATE [id number] 15:28:00 Test Item Value Reference Range Interpretation Comments IMMUNOFIXATION URINE (test code = SCREEN NEGATIVE IMMFIXU) UR TOTAL PROTEIN (test code = PROTEU) mg/dL 0.0-15.0 UR [id number] (test code = % A1GU) UR [id number] (test code = % A2GU) UR BETA GLOBULIN (test code = BGU) % UR GAMMA GLOBULIN (test code = GGU) % MONOCLONAL SPIKE (test code = % Not Observe MONOSPIKE) UR ALBUMIN QUANT (test code = ALBU) % NOT ESTABL. UR NA,[id number] 15:28:00 Test Item Value Reference Range Interpretation Comments UR NA,RANDOM (test code = SHAWN) 55 mmol/L 20-110 N UR PROTEIN/CREATININE [id number] 15:28:00 Test Item Value Reference Range Interpretation Comments UR PROTEIN RANDOM 14.4 mg/dL 0.0-11.9 H Protein le vels may be (test code = PROTU) falsely elevated in patients withel evated level of aminog lycoside antibiotics in CSF and inhighly concen trated urine specimens . If false elevation issuspected, co ntact lab for alterna shai testing techniq ue. UR CREATININE 127.0 mg/dL 30-125 H RANDOM (test code = CREATU) PROTEIN/CREATININE 0.11 RATIO 0.0-0.20 N RATIO (test code = P/CRATIO) CBC W/O [id number] 09:48:00 Test Item Value Reference Range Interpretation Comments WHITE BLOOD CELL (test 7.4 K/mm3 4.5-12.5 N code = WBC) RED BLOOD CELL (test 2.82 mill/mm3 3.7-5.2 L code = RBC) HEMOGLOBIN (test code 9.4 gram/dL 11.5-15.5 L RESULT VERIFIED BY = HGB) REPEAT ANALYSIS HEMATOCRIT (test code 27.7 % 36.0-46.0 L = HCT) MEAN CELL VOLUME (test 98.2 fL 80-98 H code = MCV) MEAN CELL HGB (test 33.3 picogram 27.0-33.0 H code = MCH) MEAN CELL HGB 33.9 gram/dL 33.0-36.0 N CONCETRATION (test code = MCHC) RED CELL DISTRIBUTION 14.4 % 11.6-16.2 N WIDTH (test code = RDW) PLATELET COUNT (test 151 K/mm3 150-450 N code = PLT) MEAN PLATELET VOLUME 9.1 fL 6.7-11.0 N (test code = MPV) BASIC METABOLIC [id number] 07:17:00 Test Item Value Reference Range Interpretation Comments SODIUM (test code = NA) 140 mmol/L 136-145 N POTASSIUM (test code = K) 4.0 mmol/L 3.5-5.1 N CHLORIDE (test code = CL) 109.0 mmol/L 98-107 H CARBON DIOXIDE (test code = CO2) mmol/L 21-32 ANION GAP (test code = GAP) 10-20 GLUCOSE (test code = GLU) mg/dL 74-106 BLOOD UREA NITROGEN (test code = mg/dL 7-18 BUN) GLOMERULAR FILTRATION RATE (test mL/min >=60 code = GFR) CREATININE (test code = CREAT) mg/dL 0.55-1.02 BUN/CREATININE RATIO (test code 1020 = BUN/CREA) CALCIUM (test code = CA) mg/dL 8.5-10.1 [id number] 07:17:00 Test Item Value Reference Range Interpretation Comments PHOSPHORUS (test code = PHOS) mg/dL 2.5-4.9 [id number] 07:17:00 Test Item Value Reference Range Interpretation Comments MAGNESIUM (test code = MAG) mg/dL 1.8-2.4 BASIC METABOLIC [id number] 07:17:00 Test Item Value Reference Range Interpretation Comments SODIUM (test code = 140 mmol/L 136-145 N NA) POTASSIUM (test code 4.0 mmol/L 3.5-5.1 N = K) CHLORIDE (test code = 109.0 mmol/L 98-107 H CL) CARBON DIOXIDE (test 22.0 mmol/L 21-32 N code = CO2) ANION GAP (test code 13.0 10-20 N = GAP) GLUCOSE (test code = 104 mg/dL 74-106 N GLU) BLOOD UREA NITROGEN 34 mg/dL 7-18 H (test code = BUN) GLOMERULAR FILTRATION 33 mL/min >=60 Estima shai GFR by RATE (test code = using Cristin fied MDRD GFR) formula.Chronic kidney disease is defined as eith er kidney damageor GFR <60 mL/min/1.73 m2 for >3 months. CREATININE (test code 1.60 mg/dL 0.55-1.02 H Note change in = CREAT) reference range due to change in reagent. BUN/CREATININE RATIO 21.7 10-20 H (test code = BUN/CREA) CALCIUM (test code = 9.2 mg/dL 8.5-10.1 N CA) [id number] 07:17:00 Test Item Value Reference Range Interpretation Comments PHOSPHORUS (test code = PHOS) 4.7 mg/dL 2.5-4.9 N [id number] 07:17:00 Test Item Value Reference Range Interpretation Comments MAGNESIUM (test code = MAG) 2.2 mg/dL 1.8-2.4 N URINALYSIS [id number] 19:15:00 Test Item Value Reference Range Interpretation Comments UA COLOR (test code = YELLOW YELLOW COLU) UA APPEARANCE (test code CLEAR CLEAR = APPU) UA GLUCOSE DIPSTICK (test NEGATIVE mg/dL NEGATIVE code = DGLUU) UA BILIRUBIN DIPSTICK NEGATIVE mg/dL NEGATIVE (test code = BILU) UA KETONE DIPSTICK (test NEGATIVE mg/dL NEGATIVE code = KETU) UA SPECIFIC GRAVITY (test 1.042 1.001-1.035 code = SGU) UA BLOOD DIPSTICK (test Negative mg/dL NEGATIVE code = JOSTIN) UA PH DIPSTICK (test code 5.5 5.0-8.0 = DORIS) UA PROTEIN DIPSTICK (test NEGATIVE mg/dL NEGATIVE code = PROU) UA UROBILINIOGEN DIPSTICK Normal mg/dL NEGATIVE (test code = URO) UA NITRITE DIPSTICK (test NEGATIVE NEGATIVE code = JUAN) UA LEUKOCYTE ESTERASE W 500 Yfn/uL (3+) NEGATIVE A REFLEX (test code = Yfn/uL LEUUR) UA WBC (test code = WBCU) 6-10 per HPF 0-5 A UA RBC (test code = RBCU) 0-2 #/HPF 0-5 UA EPITHELIAL CELLS (test FEW per HPF FEW code = EPIU) UA BACTERIA (test code = FEW #/HPF NONE A BACU) Urine Source? Clean Catch- US RETRO [id number] 18:29:00 Name: AGUS RODRIGUES [facility] : 1955 Age/S: 62 / F [address] [facility] Unit #: [id number] Loc: [place] [address] Phys: Paco Petit MD Acct: [id number] Dis Date: Status: ADM IN PHONE #: [phone] Exam Date: 11/10/20181708 FAX #: [phone] Reason: eval size EXAMS: CPT CODE: [id number] [employer] [id number] REASON FOR EXAM: eval size EXAM ORDER DATE: 11/10/2018 10:44 AM Attending MChasityD.: Paco Petit MD PROCEDURE: - US RETRO LTD Comparison: No priors FINDINGS: Right kidney: parenchyma echogenicity: Normal echogenicity size: 8.7 x 3.6 x 4.7 cm. stones: none cysts/masses: Multiple cortical cysts are present with the largest measuring up to 2.3 cm in size. This cyst is simple. There is a smaller cortical cyst measuring up to 1.3 cm in size with internal echogenicities which may represent hemorrhagic product. hydronephrosis: none Left kidney: parenchyma echogenicity: Normal echogenicity size: 8.1 x 3.8 x 4.1 cm. stones: Hyperechoic echogenicity with posterior shadowing measuring up to 4 mm in size may represent a small stone. cysts/masses: Simple cortical cyst measuring up to 2.4 cmin size. This is a warrant further evaluation. hydronephrosis: none Urinary Bladder: Not imaged. Incidental note is made of a gallbladder stone. IMPRESSION: Bilateral simple renal cortical cysts. Thesedo not warrant further evaluation. There is a cyst in the right kidney with internal echogenicities which may represent hemorrhage. A follow-up ultrasound may be performed in one year to ensure stability. Incidental note is made of cholelithiasis. Dedicated right upper quadrant ultrasound can provide further information if the patient is PAGE 1 Signed Report (CONTINUED) Name: AGUS RODRIGUES [facility] : 1955 Age/S: 62 / F [address] [facility] Unit #: [id number] Loc: [place] [address] Phys: Paco Petit MD Acct: [id number] Dis Date: Status: ADM IN PHONE #: [phone] Exam Date: 11/10/20181708 FAX #: [phone] Reason: eval size EXAMS: CPT CODE: [id number] [employer] [facility] [address] <Continued> demonstrating symptoms of cholecystitis. Electronically Signed by Leonel Ortega MD on 10/23 at 1829 Reported and signed by: Leonel Ortega MD CC: Paco Petit MD; Erasmo Bermudez MD Technologist: Leatha Davis RDMS Trnscb Date/Time: 11/10/2018 (1828) t.[email or web address] Orig Print D/T: S: 11/10/2018 (183) Probe: PAGE 2 Signed ReportLIPID PROFILE (CORONARY RISK)2018-11-10 08:40:00 Test Item Value Reference Range Interpretation Comments TRIGLYCERIDES (test 333 mg/dL 20-150 H code = TRIG) CHOLESTEROL (test code 150 mg/dL 0-200 N = CHOL) CHOLESTEROL/HDL RATIO 4.0 RATIO 0-4.9 N RISK A SSOCIATED WITH (test code = CHOLHDL) CHOL/H DL RATIOS: Risk Male Female1/2 AVERAGE 3.43 3.27AVERAG E 4.97 4.442X AVERAGE 9.55 7.053X AVERAGE 23.39 11.04 REFERENCE VALUE IS RELATED TO R ISK LEVELS ASRECOMM ENDED BY THE YAEL. HEA RT, LUNG, AND BLOOD INST. HDL CHOLESTEROL (test 32 mg/dL 40-60 L code = HDL) LIPOPROTEIN LDL (test 91 mg/dL 100-129 L ====== code = LDL) ======= Referen ce Interval: mg /dL mmol/L--------- ------- ------- ------O ptimal <100 <2.6Near/above optimal 100-129 2.6-3.3Borderli ne High 130-159 3.4-4.1 High 160-189 4.1-4.9 Very High >=190 >=4.9========= This LDL result is a direct measurement.=== ====== [id number] 08:40:00 Test Item Value Reference Range Interpretation Comments PHOSPHORUS (test code = PHOS) 2.6 mg/dL 2.5-4.9 N [id number] 08:40:00 Test Item Value Reference Range Interpretation Comments MAGNESIUM (test code = MAG) 2.7 mg/dL 1.8-2.4 H BASIC METABOLIC [id number] 07:43:00 Test Item Value Reference Range Interpretation Comments SODIUM (test code = 138 mmol/L 136-145 N NA) POTASSIUM (test code 4.0 mmol/L 3.5-5.1 N = K) CHLORIDE (test code = 102.0 mmol/L 98-107 N CL) CARBON DIOXIDE (test 21.0 mmol/L 21-32 N code = CO2) ANION GAP (test code 19.0 10-20 N = GAP) GLUCOSE (test code = 132 mg/dL 74-106 H GLU) BLOOD UREA NITROGEN 34 mg/dL 7-18 H (test code = BUN) GLOMERULAR FILTRATION 29 mL/min >=60 Estima shai GFR by RATE (test code = using Cristin fied MDRD GFR) formula.Chronic kidney disease is defined as [facility] kidney damageor GFR <60 mL/min/1.73 m2 for >3 months. CREATININE (test code 1.80 mg/dL 0.55-1.02 H Note change in = CREAT) reference range due to change in reagent. BUN/CREATININE RATIO 19.2 10-20 N (test code = BUN/CREA) CALCIUM (test code = 9.7 mg/dL 8.5-10.1 N CA) CBC W/AUTO [id number] 07:09:00 Test Item Value Reference Range Interpretation Comments WHITE BLOOD CELL (test code = 10.2 K/mm3 4.5-12.5 N WBC) RED BLOOD CELL (test code = 3.49 mill/mm3 3.7-5.2 L RBC) HEMOGLOBIN (test code = HGB) 11.6 gram/dL 11.5-15.5 N HEMATOCRIT (test code = HCT) 34.0 % 36.0-46.0 L MEAN CELL VOLUME (test code = 97.4 fL 80-98 N MCV) MEAN CELL HGB (test code = MCH) 33.2 picogram 27.0-33.0 H MEAN CELL HGB CONCETRATION 34.1 gram/dL 33.0-36.0 N (test code = MCHC) RED CELL DISTRIBUTION WIDTH 14.0 % 11.6-16.2 N (test code = RDW) RED CELL DISTRIBUTION WIDTH SD 49.2 fL 37.0-51.0 N (test code = RDW-SD) PLATELET COUNT (test code = 192 K/mm3 150-450 N PLT) MEAN PLATELET VOLUME (test code 9.0 fL 6.7-11.0 N = MPV) NEUTROPHIL % (test code = NT%) 58.9 % 39.0-69.0 N IMMATURE GRANULOCYTE % (test 0.9 % 0.0-5.0 N code = IG%) LYMPHOCYTE % (test code = LY%) 32.9 % 25.0-55.0 N MONOCYTE % (test code = MO%) 6.1 % 0.0-10.0 N EOSINOPHIL % (test code = EO%) 0.7 % 0.0-5.0 N BASOPHIL % (test code = BA%) 0.5 % 0.0-1.0 N NUCLEATED RBC % (test code = 0.0 % 0-0 N NRBC%) NEUTROPHIL # (test code = NT#) 6.03 K/mm3 1.8-7.7 N IMMATURE GRANULOCYTE # (test 0.09 x10 3/uL 0-0.03 H code = IG#) LYMPHOCYTE # (test code = LY#) 3.37 K/mm3 1.0-5.0 N MONOCYTE # (test code = MO#) 0.62 K/mm3 0-0.8 N EOSINOPHIL # (test code = EO#) 0.07 K/mm3 0.0-0.5 N BASOPHIL # (test code = BA#) 0.05 K/mm3 0.0-0.2 N NUCLEATED RBC # (test code = 0.00 K/mm3 0.0-0.1 N NRBC#) MANUAL DIFF REQUIRED (test code NO = MDIFF) CBC W/AUTO [id number] 07:05:00 Test Item Value Reference Range Interpretation Comments WHITE BLOOD CELL (test code = K/mm3 4.5-12.5 WBC) RED BLOOD CELL (test code = RBC) mill/mm3 3.7-5.2 HEMOGLOBIN (test code = HGB) 11.6 gram/dL 11.5-15.5 N HEMATOCRIT (test code = HCT) % 36.0-46.0 MEAN CELL VOLUME (test code = fL 80-98 MCV) MEAN CELL HGB (test code = MCH) picogram 27.0-33.0 MEAN CELL HGB CONCETRATION (test gram/dL 33.0-36.0 code = MCHC) RED CELL DISTRIBUTION WIDTH % 11.6-16.2 (test code = RDW) RED CELL DISTRIBUTION WIDTH SD fL 37.0-51.0 (test code = RDW-SD) PLATELET COUNT (test code = PLT) K/mm3 150-450 MEAN PLATELET VOLUME (test code fL 6.7-11.0 = MPV) NEUTROPHIL % (test code = NT%) % 39.0-69.0 IMMATURE GRANULOCYTE % (test % 0.0-5.0 code = IG%) LYMPHOCYTE % (test code = LY%) % 25.0-55.0 MONOCYTE % (test code = MO%) % 0.0-10.0 EOSINOPHIL % (test code = EO%) % 0.0-5.0 BASOPHIL % (test code = BA%) % 0.0-1.0 NEUTROPHIL # (test code = NT#) K/mm3 1.8-7.7 LYMPHOCYTE # (test code = LY#) K/mm3 1.0-5.0 MONOCYTE # (test code = MO#) K/mm3 0-0.8 EOSINOPHIL # (test code = EO#) K/mm3 0.0-0.5 BASOPHIL # (test code = BA#) K/mm3 0.0-0.2 COAGULATION TIME [id number] 21:27:00 Test Item Value Reference Range Interpretation Comments COAGULATION TIME ACTIVATED (test 321 seconds 62.8-88.0 H code = ACT) COAGULATION TIME [id number] 20:53:00 Test Item Value Reference Range Interpretation Comments COAGULATION TIME ACTIVATED (test 348 seconds 62.8-88.0 H code = ACT) COAGULATION TIME [id number] 20:38:00 Test Item Value Reference Range Interpretation Comments COAGULATION TIME ACTIVATED (test 98 seconds 62.8-88.0 H code = ACT) TROPONIN I [id number] 19:31:00 Test Item Value Reference Range Interpretation Comments TROPONIN I RAPID 3.12 ng/mL <0.08 HH Please Note New (test code = Reference Range TROPIRAP) 0.00-0.079 ng/m L - Negative>or= 0. 08 ng/mL - Positive The us e of serial sampling and te sting protocol is are commended practice.An skyler vated troponin level alone is often not suffi cient fordiagnosis of myocardial infarction. Tro ponin results obtaine d by different assay s may vary.Evaluation of the extent of myoca rdial damage based on increase of troponin would be valid only if similar methodology is used. THROMBOPLASTIN TIME [id number] 12:34:00 Test Item Value Reference Range Interpretation Comments THROMBOPLASTIN TIME PARTIAL 72.2 seconds 25.0-36.5 H (test code = PTT) SPECIMEN COMMENTS: PLEASE COLLECT ON TIMEIS PATIENT ON ANTICOAGULANTS? YLIST ANTICOAGULANTS HEPARIN- XR CHEST 1 [id number] 09:00:00 FAX: Roderick Gonzalez I [phone] [place]: B St: ADM FAX: Erasmo Benavidez MD [phone] ---- Name: AGUS RODRIGUES [facility] : 1955 Age/S: 62/F [address] [facility] Unit #: [id number] Loc: [place] [address] Phys: Erasmo Bermudez MD Acct: [id number] Dis Date: Status: ADM IN PHONE #: [phone] Exam Date: 11/09/2018 0849 FAX #: [phone] Reason: chf EXAMS: CPT CODE: [id number] XR CHEST 1 V 74530 HISTORY: CHF. COMPARISON: None available. No acute infiltrates, effusion or congestion is noted. Mild cardiomegaly.. IMPRESSION: No acute infiltrates, effusion or congestion. at 0900 Reported and signed by: Rico Solano M.D. CC: Roderick Rooney MD; Erasmo Bermudez MD Technologist: Chen Moran(R) Trnscrd Date/Time/By: 11/09/2018 (09) : By: Luis [email or web address] Orig Print D/T: S: 11/09/2018 (0903) PAGE 1 Signed [id number] 07:25:00 Test Item Value Reference Range Interpretation Comments TROPONIN-I (test code = TROPI) 1.790 ng/mL 0-0.045 HH COMMENTS TO PILLOWCASE FOLDER: COLLECT 3 HOURS AFTER PREVIOUS SAMPLETHROMBOPLASTIN TIME [id number] 07:25:00 Test Item Value Reference Range Interpretation Comments THROMBOPLASTIN TIME PARTIAL 59.9 seconds 25.0-36.5 H (test code = PTT) IS PATIENT ON ANTICOAGULANTS? YLIST ANTICOAGULANTS HEPARINCOMPREHENSIVE METABOLIC [id number] 07:23:00 Test Item Value Reference Range Interpretation Comments SODIUM (test code = 134 mmol/L 136-145 L NA) POTASSIUM (test code = 4.4 mmol/L 3.5-5.1 N K) CHLORIDE (test code = 102.0 mmol/L 98-107 N CL) CARBON DIOXIDE (test 22.0 mmol/L 21-32 N code = CO2) ANION GAP (test code = 14.4 10-20 N GAP) GLUCOSE (test code = 157 mg/dL 74-106 H GLU) BLOOD UREA NITROGEN 24 mg/dL 7-18 H (test code = BUN) GLOMERULAR FILTRATION 38 mL/min >=60 Estima shai GFR by RATE (test code = GFR) using Modified MDRD formula.Chronic kidney disease is defined as eith er kidney damageor GFR <60 mL/min/1.73 m2 for >3 months. CREATININE (test code 1.40 mg/dL 0.55-1.02 H Note change in = CREAT) reference range due to change in reagent. BUN/CREATININE RATIO 17.8 10-20 N (test code = BUN/CREA) TOTAL PROTEIN (test 7.0 gram/dL 6.4-8.2 N code = PROT) ALBUMIN (test code = 3.1 g/dL 3.4-5.0 L ALB) GLOBULIN (test code = 3.9 gram/dL 2.7-4.2 N GLOB) ALBUMIN/GLOBULIN RATIO 0.8 0.75-1.50 N (test code = A/G) CALCIUM (test code = 9.4 mg/dL 8.5-10.1 N CA) BILIRUBIN TOTAL (test 0.50 mg/dL 0.0-1.0 N code = BILT) SGOT/AST (test code = 30 IUnit/L 15-37 N AST) SGPT/ALT (test code = 13 IUnit/L 12-78 N ALT) ALKALINE PHOSPHATASE 64 IUnit/L 45-117 N Note change in TOTAL (test code = reference range due ALKP) to change in reagent. [id number] 07:23:00 Test Item Value Reference Range Interpretation Comments MAGNESIUM (test code = MAG) 1.6 mg/dL 1.8-2.4 L CBC W/O [id number] 06:24:00 Test Item Value Reference Range Interpretation Comments WHITE BLOOD CELL (test code = 5.6 K/mm3 4.5-12.5 N WBC) RED BLOOD CELL (test code = 3.63 mill/mm3 3.7-5.2 L RBC) HEMOGLOBIN (test code = HGB) 12.0 gram/dL 11.5-15.5 N HEMATOCRIT (test code = HCT) 34.9 % 36.0-46.0 L MEAN CELL VOLUME (test code = 96.1 fL 80-98 N MCV) MEAN CELL HGB (test code = MCH) 33.1 picogram 27.0-33.0 H MEAN CELL HGB CONCETRATION 34.4 gram/dL 33.0-36.0 N (test code = MCHC) RED CELL DISTRIBUTION WIDTH 13.7 % 11.6-16.2 N (test code = RDW) PLATELET COUNT (test code = 166 K/mm3 150-450 N PLT) MEAN PLATELET VOLUME (test code 9.2 fL 6.7-11.0 N = MPV) CBC W/O [id number] 06:22:00 Test Item Value Reference Range Interpretation Comments WHITE BLOOD CELL (test code = K/mm3 4.5-12.5 WBC) RED BLOOD CELL (test code = RBC) mill/mm3 3.7-5.2 HEMOGLOBIN (test code = HGB) 12.0 gram/dL 11.5-15.5 N HEMATOCRIT (test code = HCT) % 36.0-46.0 MEAN CELL VOLUME (test code = fL 80-98 MCV) MEAN CELL HGB (test code = MCH) picogram 27.0-33.0 MEAN CELL HGB CONCETRATION (test gram/dL 33.0-36.0 code = MCHC) RED CELL DISTRIBUTION WIDTH % 11.6-16.2 (test code = RDW) PLATELET COUNT (test code = PLT) K/mm3 150-450 MEAN PLATELET VOLUME (test code fL 6.7-11.0 = MPV) [id number] 02:18:00 Test Item Value Reference Range Interpretation Comments TROPONIN-I 1.830 ng/mL 0-0.045 HH RESULT VERIFIED BY REPEAT (test code = ANALYSISSPECIME N 4+ TROPI) HEMOLYSIS COMMENTS TO PILLOWCASE FOLDER: COLLECT 3 HOURS AFTER PREVIOUS SAMPLETHROMBOPLASTIN TIME [id number] 21:49:00 Test Item Value Reference Range Interpretation Comments THROMBOPLASTIN TIME PARTIAL 30.5 seconds 25.0-36.5 N (test code = PTT) IS PATIENT ON ANTICOAGULANTS? NHEPATIC FUNCTION [id number] 21:22:00 Test Item Value Reference Range Interpretation Comments TOTAL PROTEIN (test 6.7 gram/dL 6.4-8.2 N code = PROT) ALBUMIN (test code = 3.2 g/dL 3.4-5.0 L ALB) GLOBULIN (test code = 3.5 gram/dL 2.7-4.2 N GLOB) ALBUMIN/GLOBULIN RATIO 0.9 0.75-1.50 N (test code = A/G) BILIRUBIN TOTAL (test 0.60 mg/dL 0.0-1.0 N code = BILT) BILIRUBIN DIRECT (test 0.18 mg/dL 0.0-0.20 N code = BILD) SGOT/AST (test code = 30 IUnit/L 15-37 N AST) SGPT/ALT (test code = 12 IUnit/L 12-78 N ALT) ALKALINE PHOSPHATASE 63 IUnit/L 45-117 N Note change in TOTAL (test code = reference range due ALKP) to change in reagent. [id number] 21:12:00 Test Item Value Reference Range Interpretation Comments HEMATOCRIT (test code = HCT) 34.8 % 36.0-46.0 L PLATELET [id number] 21:12:00 Test Item Value Reference Range Interpretation Comments PLATELET COUNT (test code = PLT) 182 K/mm3 150-450 N BASIC METABOLIC [id number] 20:28:00 Test Item Value Reference Range Interpretation Comments SODIUM (test code = 137 mmol/L 136-145 N NA) POTASSIUM (test code 3.9 mmol/L 3.5-5.1 N = K) CHLORIDE (test code = 104.0 mmol/L 98-107 N CL) CARBON DIOXIDE (test 25.0 mmol/L 21-32 N code = CO2) ANION GAP (test code 11.9 10-20 N = GAP) GLUCOSE (test code = 108 mg/dL 74-106 H GLU) BLOOD UREA NITROGEN 21 mg/dL 7-18 H (test code = BUN) GLOMERULAR FILTRATION 38 mL/min >=60 Estima shai GFR by RATE (test code = using Cristin fied MDRD GFR) formula.Chronic kidney disease is defined as eith er kidney damageor GFR <60 mL/min/1.73 m2 for >3 months. CREATININE (test code 1.40 mg/dL 0.55-1.02 H Note change in = CREAT) reference range due to change in reagent. BUN/CREATININE RATIO 14.6 10-20 N (test code = BUN/CREA) CALCIUM (test code = 9.8 mg/dL 8.5-10.1 N CA) [id number] 20:28:00 Test Item Value Reference Range Interpretation Comments TROPONIN-I (test 2.430 ng/mL 0-0.045 HH Results dee led to code = TROPI) [id number] by Valeriano SCHERER.QUR 11/08/182027Cr itical results verifie d and read back by Nu rse? Y - XR CHEST 1 [id number] 20:07:00 FAX: Nicholas Hernadez MD [phone] [place]: St: REG Name: AGUS RODRIGUES [facility] : 1955 Age/S: 62/F [address] Unit #: [id number] Loc: [place] [address] Phys: Nicholas Hernadez MD Acct: [id number] Date: Status: REG ER PHONE #: [phone] Exam Date: 11/08/20181950 FAX #: [phone] Reason: CHEST PAIN EXAMS: CPT CODE: [id number] XR CHEST 1 V 49524 HISTORY: Chest pain. COMPARISON: October 24, 2018. No acute infiltrates, effusion or congestion is noted. Scarring and hyperinflation. Cardiomegaly. Patient is post median sternotomy. IMPRESSION: No acute infiltrates, effusion or congestion. at 2006 Reported and signed by: Rico Solano M.D. CC: Nicholas Hernadez MD Technologist: Titus Sharif RT(R); Finn Garibay RT(R) Trnscrd Date/Time/By: 11/08/2018 (2006) : By: [email or web address] Orig Print D/T: S: 11/08/2018 (2009) PAGE 1 Signed ReportCBC W/O [id number] 20:05:00 Test Item Value Reference Range Interpretation Comments WHITE BLOOD CELL (test code = 9.5 K/mm3 4.5-12.5 N WBC) RED BLOOD CELL (test code = 3.57 mill/mm3 3.7-5.2 L RBC) HEMOGLOBIN (test code = HGB) 11.9 gram/dL 11.5-15.5 N HEMATOCRIT (test code = HCT) 35.1 % 36.0-46.0 L MEAN CELL VOLUME (test code = 98.3 fL 80-98 H MCV) MEAN CELL HGB (test code = MCH) 33.3 picogram 27.0-33.0 H MEAN CELL HGB CONCETRATION 33.9 gram/dL 33.0-36.0 N (test code = MCHC) RED CELL DISTRIBUTION WIDTH 13.8 % 11.6-16.2 N (test code = RDW) PLATELET COUNT (test code = 179 K/mm3 150-450 N PLT) MEAN PLATELET VOLUME (test code 8.8 fL 6.7-11.0 N = MPV) BASIC METABOLIC [id number] 19:59:00 Test Item Value Reference Range Interpretation Comments SODIUM (test code = NA) 137 mmol/L 136-145 N POTASSIUM (test code = K) 3.9 mmol/L 3.5-5.1 N CHLORIDE (test code = CL) 104.0 mmol/L 98-107 N CARBON DIOXIDE (test code = CO2) mmol/L 21-32 ANION GAP (test code = GAP) 10-20 GLUCOSE (test code = GLU) mg/dL 74-106 BLOOD UREA NITROGEN (test code = mg/dL 7-18 BUN) GLOMERULAR FILTRATION RATE (test mL/min >=60 code = GFR) CREATININE (test code = CREAT) mg/dL 0.55-1.02 BUN/CREATININE RATIO (test code 10-20 = BUN/CREA) CALCIUM (test code = CA) mg/dL 8.5-10.1 [id number] 19:59:00 Test Item Value Reference Range Interpretation Comments TROPONIN-I (test code = TROPI) ng/mL 0-0.045 CBC W/O [id number] 19:47:00 Test Item Value Reference Range Interpretation Comments WHITE BLOOD CELL (test code = K/mm3 4.5-12.5 WBC) RED BLOOD CELL (test code = RBC) mill/mm3 3.7-5.2 HEMOGLOBIN (test code = HGB) 11.9 gram/dL 11.5-15.5 N HEMATOCRIT (test code = HCT) % 36.0-46.0 MEAN CELL VOLUME (test code = fL 80-98 MCV) MEAN CELL HGB (test code = MCH) picogram 27.0-33.0 MEAN CELL HGB CONCETRATION (test gram/dL 33.0-36.0 code = MCHC) RED CELL DISTRIBUTION WIDTH % 11.6-16.2 (test code = RDW) PLATELET COUNT (test code = PLT) K/mm3 150-450 MEAN PLATELET VOLUME (test code fL 6.7-11.0 = MPV) - CT HEAD/BRAIN W/O [id number] 13:52:00 Name: AGUS RODRIGUES [facility] : 1955 Age/S: 62 / F [address] Unit #: [id number]: [place] [address] Phys: Elissa Sepulveda DO Acct: [id number] Dis Date: Status: REG ER PHONE #: [phone] Exam Date: 10/24/2018 1350 FAX #: [phone] Reason: hallucinations EXAMS: CPT CODE: [id number] CT HEAD/BRAIN W/O CONT [id number] REASON FOR EXAM: hallucinations EXAM ORDER DATE: 10/24/2018 1:16 PM Ordering M.D.: Elissa Sepulveda DO PROCEDURE: - CT HEAD/BRAIN W/O CONT COMPARISON: FINDINGS: CT images of the brain were obtained without IV contrast. Dose modulation, iterative reconstruction, and/or weight based adjustment of the MA/KV was utilized to reduce the radiation dose to as low as reasonably achievable. The brain parenchyma is within normal limits. The soto-white matter delineation is unremarkable. The ventricles, cisterns, and sulci are unremarkable. There is no evidence of hemorrhage, mass, mass effect. There is no evidence of acute or old infarct. The calvarium is intact. IMPRESSION: Unremarkable brain. at 1352 Reported and signed by: Bal Aguilar M.D. CC: Elissa Sepulveda DO Technologist:Carlos Laura RT(R)(CT) CTDI: DLP: Trnscb Date/Time: 10/24/2018 (8542) Josefa Orig Print D/T: S: 10/24/2018 (6695) PAGE 1 SignedReportURINALYSIS [id number] 13:48:00 Test Item Value Reference Range Interpretation Comments UA COLOR (test code = Light-Yellow YELLOW COLU) UA APPEARANCE (test code CLEAR CLEAR = APPU) UA GLUCOSE DIPSTICK (test NEGATIVE mg/dL NEGATIVE code = DGLUU) UA BILIRUBIN DIPSTICK NEGATIVE mg/dL NEGATIVE (test code = BILU) UA KETONE DIPSTICK (test NEGATIVE mg/dL NEGATIVE code = KETU) UA SPECIFIC GRAVITY (test 1.010 1.001-1.035 code = SGU) UA BLOOD DIPSTICK (test Negative mg/dL NEGATIVE code = JOSTIN) UA PH DIPSTICK (test code 6.0 5.0-8.0 = DORIS) UA PROTEIN DIPSTICK (test NEGATIVE mg/dL NEGATIVE code = PROU) UA UROBILINIOGEN DIPSTICK Normal mg/dL NEGATIVE (test code = URO) UA NITRITE DIPSTICK (test NEGATIVE NEGATIVE code = JUAN) UA LEUKOCYTE ESTERASE W 25 Yfn/uL (Trace) NEGATIVE A REFLEX (test code = Yfn/uL LEUUR) UA WBC (test code = WBCU) 0-5 per HPF 0-5 UA RBC (test code = RBCU) 0-2 #/HPF 0-5 UA EPITHELIAL CELLS (test FEW per HPF FEW code = EPIU) UA BACTERIA (test code = FEW #/HPF NONE BACU) Urine Source? Clean CatchDRUGS OF ABUSE SCREEN [id number] 13:48:00 Test Item Value Reference Range Interpretation Comments URN COCAINE (test NEGATIVE <300 ng/mL code = COCAURN) URN CANNABINOIDS POSITIVE <50 ng/mL A This test p rovides only a (test code = preliminary sathish t result. CANNABURN) A morespecific alternate chemical method must be used in order t oobtain a confirmed norma tical result. Gas chromatography/ mass spectrometry (G C/MS) is thepreferred co nfirmatory method. Other c hemical confirmationmet hods are available. Clin ical consideration a nd professional ju dgment should be appli ed to any drug of abusete st result, particularly wh en preliminary pos itive resultsare used.Unconfirme d screening resul ts must not be used fornon-medical purposes (e.g., employme nt testing, legalt esting). URN AMPHETAMINE (test NEGATIVE <1000 ng/mL code = AMPHETURN) URN BARBITURATE (test NEGATIVE <200 ng/mL code = BARBITURN) URN BENZODIAZEPINE NEGATIVE <200 ng/mL (test code = BENZOURN) URN OPIATES (test NEGATIVE <300 ng/mL code = OPIATURN) URN PHENCYCLIDINE NEGATIVE <25 ng/mL (PCP) (test code = PHENCURN) URN METHADONE (test NEGATIVE <300 ng/mL code = METHAURN) Urine Source? Clean CatchBASIC METABOLIC [id number] 13:22:00 Test Item Value Reference Range Interpretation Comments SODIUM (test code = 133 mmol/L 136-145 L NA) POTASSIUM (test code = 4.6 mmol/L 3.5-5.1 N K) CHLORIDE (test code = 99.0 mmol/L 98-107 N CL) CARBON DIOXIDE (test 28.0 mmol/L 21-32 N code = CO2) ANION GAP (test code = 10.6 10-20 N GAP) GLUCOSE (test code = 92 mg/dL 74-106 N GLU) BLOOD UREA NITROGEN 30 mg/dL 7-18 H (test code = BUN) GLOMERULAR FILTRATION 38 mL/min >=60 Estima shai GFR by RATE (test code = GFR) using Modified MDRD formula.Chronic kidney disease is defined as [facility] er kidney damageor GFR <60 mL/min/1.73 m2 for >3 months. CREATININE (test code 1.40 mg/dL 0.55-1.02 H Note change in = CREAT) reference range due to change in reagent. BUN/CREATININE RATIO 21.0 10-20 H (test code = BUN/CREA) CALCIUM (test code = 9.4 mg/dL 8.5-10.1 N CA) HEPATIC FUNCTION [id number] 13:22:00 Test Item Value Reference Range Interpretation Comments TOTAL PROTEIN (test 7.7 gram/dL 6.4-8.2 N code = PROT) ALBUMIN (test code = 3.9 g/dL 3.4-5.0 N ALB) GLOBULIN (test code = 3.8 gram/dL 2.7-4.2 N GLOB) ALBUMIN/GLOBULIN RATIO 1.0 0.75-1.50 N (test code = A/G) BILIRUBIN TOTAL (test 0.40 mg/dL 0.0-1.0 N code = BILT) BILIRUBIN DIRECT (test 0.16 mg/dL 0.0-0.20 N code = BILD) SGOT/AST (test code = 11 IUnit/L 15-37 L AST) SGPT/ALT (test code = 11 IUnit/L 12-78 L ALT) ALKALINE PHOSPHATASE 73 IUnit/L 45-117 N Note change in TOTAL (test code = reference range due ALKP) to change in reagent. [id number] 13:22:00 Test Item Value Reference Range Interpretation Comments ACETAMINOPHEN (test < 10 mcg/mL 10-30 L A RANGE OF 10-30 code = ACET) mcg/mL IS A THERAPEUTIC RAN GE. TOXIC CONCENTRATIONS: >150 mcg/mL AT 4 SHANTANU RS AFTER INGESTION >= 50 mcg/mL AT 12 HOURS AFTER INGESTION [id number] 13:22:00 Test Item Value Reference Range Interpretation Comments SALICYLATE (test code = LUIS) 3.4 mg/dL 2.8-20.0 N [id number] 13:22:00 Test Item Value Reference Range Interpretation Comments ALCOHOL (test code < 3 mg/dL 0.0-3.0 N --------- --------INTERPRE = ALC) TIVE DATA NOTE: POSITIVE SCREEN ING RESULTS SHOULD BE CONSIDERED PRESUMPTIVE.WHE N COLLECTED FOR M EDICAL PURPOSES ONLY. SPECIMEN WILL NOTBE WILMER ECTED BY CHAIN OF CUSTOD Y.IF A CONFIRMATION OF POSITIVE RESULTS IS SABRA RED, ACONFIRMATION T EST MUST BE REQUESTED BY THE PHYSICIAN AT AN ADDITIONAL CHARGE TO THE [facility]. [id number] 13:22:00 Test Item Value Reference Range Interpretation Comments TROPONIN-I (test code = TROPI) <0.015 ng/mL 0-0.045 N - XR CHEST 1 [id number] 13:15:00 FAX: Elissa Sepulveda DO [place]: [address]: REG Name: AGUS RODRIGUES [facility] : 1955 Age/S: 62/F [address] Unit #: [id number] Loc: [place] [address] Phys: Elissa Sepulveda DO Acct: [id number] Dis Date:Status: REG ER PHONE #: [phone] Exam Date: 10/24/2018 1306 FAX #: [phone] Reason: dyspnea EXAMS: CPT CODE: [id number] XR CHEST 1 V [id number] REASON FOR EXAM: dyspnea EXAM ORDER DATE: 10/24/2018 12:17 PM Ordering Jhonny: Elissa Sepulveda DO PROCEDURE: - XR CHEST 1 V COMPARISON: FINDINGS: Portable AP frontal view of the chest obtained at 1:06 PM shows clear lungs without evidence of consolidation. There is no evidence of effusion. The heart size is within normal limits. Pulmonary vasculatures are unremarkable. IMPRESSION: No active disease. at 1315 Reported and signed by: Bal Aguilar M.D. CC: Elissa Sepulveda DO Technologist: AUNDREA GRAVES (R) Trnscrd Date/Time/By: 10/24/2018 (9449) : By: GregorioL Orig Print D/T: S: 10/24/2018 (5285) PAGE 1 Signed ReportBASI METABOLIC [id number] 13:13:00 Test Item Value Reference Range Interpretation Comments SODIUM (test code = NA) 133 mmol/L 136-145 L POTASSIUM (test code = K) 4.6 mmol/L 3.5-5.1 N CHLORIDE (test code = CL) 99.0 mmol/L 98-107 N CARBON DIOXIDE (test code = CO2) mmol/L 21-32 ANION GAP (test code = GAP) 10-20 GLUCOSE (test code = GLU) mg/dL 74-106 BLOOD UREA NITROGEN (test code = mg/dL 7-18 BUN) GLOMERULAR FILTRATION RATE (test mL/min >=60 code = GFR) CREATININE (test code = CREAT) mg/dL 0.55-1.02 BUN/CREATININE RATIO (test code = 10-20 BUN/CREA) CALCIUM (test code = CA) mg/dL 8.5-10.1 HEPATIC FUNCTION [id number] 13:13:00 Test Item Value Reference Range Interpretation Comments TOTAL PROTEIN (test code = PROT) gram/dL 6.4-8.2 ALBUMIN (test code = ALB) g/dL 3.4-5.0 GLOBULIN (test code = GLOB) gram/dL 2.7-4.2 ALBUMIN/GLOBULIN RATIO (test code = 0.75-1.50 A/G) BILIRUBIN TOTAL (test code = BILT) mg/dL 0.0-1.0 BILIRUBIN DIRECT (test code = BILD) mg/dL 0.0-0.20 SGOT/AST (test code = AST) IUnit/L 15-37 SGPT/ALT (test code = ALT) IUnit/L 12-78 ALKALINE PHOSPHATASE TOTAL (test IUnit/L 45-117 code = ALKP) [id number] 13:13:00 Test Item Value Reference Range Interpretation Comments ACETAMINOPHEN (test code = ACET) mcg/mL 10-30 [id number] 13:13:00 Test Item Value Reference Range Interpretation Comments SALICYLATE (test code = LUIS) mg/dL 2.8-20.0 [id number] 13:13:00 Test Item Value Reference Range Interpretation Comments ALCOHOL (test code = ALC) mg/dL 0-3 URINALYSIS [id number] 13:01:00 Test Item Value Reference Range Interpretation Comments UA COLOR (test code = Light-Yellow YELLOW COLU) UA APPEARANCE (test code CLEAR CLEAR = APPU) UA GLUCOSE DIPSTICK (test NEGATIVE mg/dL NEGATIVE code = DGLUU) UA BILIRUBIN DIPSTICK NEGATIVE mg/dL NEGATIVE (test code = BILU) UA KETONE DIPSTICK (test NEGATIVE mg/dL NEGATIVE code = KETU) UA SPECIFIC GRAVITY (test 1.010 1.001-1.035 code = SGU) UA BLOOD DIPSTICK (test Negative mg/dL NEGATIVE code = JOSTIN) UA PH DIPSTICK (test code 6.0 5.0-8.0 = DORIS) UA PROTEIN DIPSTICK (test NEGATIVE mg/dL NEGATIVE code = PROU) UA UROBILINIOGEN DIPSTICK Normal mg/dL NEGATIVE (test code = URO) UA NITRITE DIPSTICK (test NEGATIVE NEGATIVE code = JUAN) UA LEUKOCYTE ESTERASE W 25 Yfn/uL (Trace) NEGATIVE A REFLEX (test code = Yfn/uL LEUUR) UA WBC (test code = WBCU) 0-5 per HPF 0-5 UA RBC (test code = RBCU) 0-2 #/HPF 0-5 UA EPITHELIAL CELLS (test FEW per HPF FEW code = EPIU) UA BACTERIA (test code = FEW #/HPF NONE BACU) Urine Source? Clean CatchDRUGS OF ABUSE SCREEN [id number] 13:01:00 Test Item Value Reference Range Interpretation Comments URN COCAINE (test code = COCAURN) <300 ng/mL URN CANNABINOIDS (test code = <50 ng/mL CANNABURN) URN AMPHETAMINE (test code = AMPHETURN) <1000 ng/mL URN BARBITURATE (test code = BARBITURN) <200 ng/mL URN BENZODIAZEPINE (test code = <200 ng/mL BENZOURN) URN OPIATES (test code = OPIATURN) <300 ng/mL URN PHENCYCLIDINE (PCP) (test code = <25 ng/mL PHENCURN) URN METHADONE (test code = METHAURN) <300 ng/mL Urine Source? Clean CatchCBC W/O [id number] 13:00:00 Test Item Value Reference Range Interpretation Comments WHITE BLOOD CELL (test code = 6.7 K/mm3 4.5-12.5 N WBC) RED BLOOD CELL (test code = 3.92 mill/mm3 3.7-5.2 N RBC) HEMOGLOBIN (test code = HGB) 12.9 gram/dL 11.5-15.5 N HEMATOCRIT (test code = HCT) 38.6 % 36.0-46.0 N MEAN CELL VOLUME (test code = 98.5 fL 80-98 H MCV) MEAN CELL HGB (test code = MCH) 32.9 picogram 27.0-33.0 N MEAN CELL HGB CONCETRATION 33.4 gram/dL 33.0-36.0 N (test code = MCHC) RED CELL DISTRIBUTION WIDTH 13.7 % 11.6-16.2 N (test code = RDW) PLATELET COUNT (test code = 153 K/mm3 150-450 N PLT) MEAN PLATELET VOLUME (test code 8.9 fL 6.7-11.0 N = MPV) CBC W/O [id number] 12:58:00 Test Item Value Reference Range Interpretation Comments WHITE BLOOD CELL (test code = K/mm3 4.5-12.5 WBC) RED BLOOD CELL (test code = RBC) mill/mm3 3.7-5.2 HEMOGLOBIN (test code = HGB) 12.9 gram/dL 11.5-15.5 N HEMATOCRIT (test code = HCT) 38.6 % 36.0-46.0 N MEAN CELL VOLUME (test code = fL 80-98 MCV) MEAN CELL HGB (test code = MCH) picogram 27.0-33.0 MEAN CELL HGB CONCETRATION (test gram/dL 33.0-36.0 code = MCHC) RED CELL DISTRIBUTION WIDTH % 11.6-16.2 (test code = RDW) PLATELET COUNT (test code = PLT) K/mm3 150-450 MEAN PLATELET VOLUME (test code fL 6.7-11.0 = MPV)
--- NOTE | 2021-11-01 16:17 | EDPHYS ---
Physician Documentation [facility] Name: Kelsi Truong Age: 65 yrs Sex: Female : 1955 Arrival Date: 11/01/2021 Time: 14:08 Bed 17 Private MD: ED Physician Sukumar Toro HPI: 11/01 15:12 This 65 yrs old Female presents to ER via Ambulatory with complaints of Psych Problem. ms3 15:12 The patient presents to the emergency department with anxiety, homicidal ideation, the ms3 patient has harmed or wants to harm Room mate. Onset: The symptoms/episode began/occurred just prior to arrival. Past psychiatric history: Prior diagnosis: bipolar disorder, depression, schizophrenia. Associated signs and symptoms: The patient has no apparent associated signs or symptoms. Severity of symptoms: Pain is currently a 0 / 10. 65-year-old female with past medical history of bipolar, schizophrenia, depressive disorder presents via [facility] [place] [facility] with [place] [facility] after patient was threatening her roommate. Patient denies pain. Patient denies alleviating or inciting factors. Patient denies homicidal ideations, suicidal ideations, hallucinations while in the emergency department.. Historical: - Allergies: 14:35 Codeine; bm7 14:35 PENICILLINS; bm7 - PMHx: 14:35 Bipolar disorder; Schizophrenia; depressive disorder; bm7 - Immunization history:: Adult Immunizations up to date. - Social history:: Smoking status: Patient reports the use of cigarette tobacco products, smokes one-half pack cigarettes per day. ROS: 15:12 Constitutional: Negative for fever, and chills. Cardiovascular: Negative for chest ms3 pain, and palpitations. Respiratory: Negative for shortness of breath, cough, wheezing, and pleuritic chest pain, Abdomen/GI: Negative for abdominal pain, nausea, vomiting, diarrhea, and constipation, MS/Extremity: Negative for injury and deformity, Neuro: Negative for headache, weakness, numbness, tingling. 15:12 Psych: Positive for anxiety. 15:12 All other systems are negative. Exam: 15:12 Constitutional: This is a well developed, well nourished patient who is awake, alert, ms3 and in no acute distress. ENT: Nares patent. No nasal discharge, no septal abnormalities noted. Tympanic membranes are normal and external auditory canals are clear. Oropharynx with no redness, swelling, or masses, exudates, or evidence of obstruction, uvula midline. Mucous membranes moist. Chest/axilla: Normal chest wall appearance and motion. Nontender with no deformity. Cardiovascular: Regular rate and rhythm with a normal S1 and S2. No gallops, murmurs, or rubs. Normal PMI, no JVD. No pulse deficits. Respiratory: Lungs have equal breath sounds bilaterally, clear to auscultation and percussion. No rales, rhonchi or wheezes noted. No increased work of breathing, no retractions or nasal flaring. Abdomen/GI: Soft, non-tender, with normal bowel sounds. No distension or tympany. No guarding or rebound. No evidence of tenderness throughout. Skin: Warm, dry with normal turgor. Normal color with no rashes, no lesions, and no evidence of cellulitis. MS/ Extremity: Pulses equal, no cyanosis. Neurovascular intact. Full, normal range of motion. 15:12 Psych: Behavior/mood is anxious, Affect is animated, Oriented to person, place, time, Patient has no thoughts/intents to harm self or others. Judgement / Insight is Vital Signs: 14:40 BP 130 / 76; Pulse 80; Resp 16; Temp 97.3(TE); Pulse Ox 99% ; Weight 57.15 kg (R); bm7 Height 4 ft. 11 in. (149.86 cm); Pain 0/10; 21:53 BP 131 / 82; Pulse 84; Resp 17 S; Pulse Ox 99% on R/A; lg3 14:40 Body Mass Index 25.45 (57.15 kg, 149.86 cm) bm7 MDM: 15:12 Patient medically screened. ms3 15:12 Differential diagnosis: acute psychotic break, depression, psychosis secondary to ms3 non-compliance. 18:48 Data reviewed: vital signs, nurses notes, lab test result(s), and as a result, I will ms3 Transfer patient to [facility]. Counseling: I had a detailed discussion with the patient and/or guardian regarding: the historical points, exam findings, and any diagnostic results supporting the discharge/admit diagnosis, lab results, the need to transfer to another facility, [facility] does not immediately have the required specialist. ED course: Discussed case with Dr Yanez at [facility] and she accepts patient.. 11/01 15:04 Order name: Acetaminophen; Complete Time: 18:05 ms3 11/01 15:04 Order name: BMP; Complete Time: 18:05 ms3 11/01 15:04 Order name: CBC with Diff; Complete Time: 18:05 ms3 11/01 15:04 Order name: Ethanol; Complete Time: 18:05 ms3 11/01 15:04 Order name: Hepatic Function; Complete Time: 18:05 ms3 11/01 15:04 Order name: Protime (+inr); Complete Time: 18:05 ms3 11/01 15:04 Order name: Ptt, Activated; Complete Time: 18:05 ms3 11/01 15:04 Order name: Salicylate; Complete Time: 18:05 ms3 11/01 15:04 Order name: Urine Drug Screen; Complete Time: 18:05 ms3 11/01 15:04 Order name: IV Saline Lock; Complete Time: 15:44 ms3 11/01 16:16 Order name: Diet Finger Food; Complete Time: 16:58 ap3 11/01 17:16 Order name: SARS RAPID; Complete Time: 18:05 eb 11/01 15:04 Order name: O2 Per Protocol; Complete Time: 19:28 ms3 11/01 15:04 Order name: O2 Sat Monitoring; Complete Time: 19:29 ms3 11/01 15:04 Order name: Suicide Screening ([place]); Complete Time: 16:49 ms3 Administered Medications: No medications were administered Disposition Summary: 11/01/21 16:16 Transfer Ordered Transfer Location: Psych Facility ms3 Reason: Higher level of care ms3 Condition: Stable ms3 Problem: new ms3 Symptoms: are unchanged ms3 Accepting Physician: Psychiatry(11/01/21 21:59) tw5 Diagnosis - Homocidal ideation ms3 Forms: - Medication Reconciliation Form ms3 - SBAR form ms3 Signatures: Dispatcher [employer] EDSukumar Castano, DO ms3 Promise Melendez, RN RN bm7 Cindy Hogan tw5 Corrections: (The following items were deleted from the chart) 21:59 16:16 Psychiatry ms3 tw5
--- NOTE | 2021-11-01 16:17 | ER ---
Nurse's Notes [facility] Name: Kelsi Truong Age: 65 yrs Sex: Female : 1955 Arrival Date: 11/01/2021 Time: 14:08 Bed 17 Private MD: Diagnosis: Homocidal ideation Presentation: 11/01 14:34 Chief complaint: EMS states: she said she has homicidal intent and wants to hurt others bm7 but no one in specific. Coronavirus screen: At this time, the client does not indicate any symptoms associated with coronavirus-19. Ebola Screen: No symptoms or risks identified at this time. Initial Sepsis Screen: Does the patient meet any 2 criteria? No. Patient's initial sepsis screen is negative. Does the patient have a suspected source of infection? No. Patient's initial sepsis screen is negative. Risk Assessment: Do you want to hurt yourself or someone else? Patient reports desire/thoughts of hurting themselves or someone else. Provider notified. Onset of symptoms was November 01, 2021. 14:34 Method Of Arrival: Ambulatory [facility] 14:34 Acuity: EBONY 2 bm7 Triage Assessment: 14:35 General: Appears in no apparent distress. uncomfortable, Behavior is anxious. Pain: bm7 Denies pain. EENT: No deficits noted. No signs and/or symptoms were reported regarding the EENT system. Neuro: No deficits noted. Cardiovascular: No deficits noted. Respiratory: No deficits noted. GI: No deficits noted. No signs and/or symptoms were reported involving the gastrointestinal system. : No deficits noted. No signs and/or symptoms were reported regarding the genitourinary system. Derm: No deficits noted. No signs and/or symptoms reported regarding the dermatologic system. Musculoskeletal: No deficits noted. No signs and/or symptoms reported regarding the musculoskeletal system. Historical: - Allergies: 14:35 Codeine; bm7 14:35 PENICILLINS; bm7 - PMHx: 14:35 Bipolar disorder; Schizophrenia; depressive disorder; bm7 - Immunization history:: Adult Immunizations up to date. - Social history:: Smoking status: Patient reports the use of cigarette tobacco products, smokes one-half pack cigarettes per day. Screenin:13 Abuse screen: patient is threatening others. ap3 16:14 Nutritional screening: No deficits noted. Tuberculosis screening: No symptoms or risk ap3 factors identified. Fall Risk. Assessment: 16:11 Reassessment: patient is noncompliant with [place] scale questions. patient reports ap3 that she wants to go to the store, buy rubber bullets to shoot everyone with. patient states she does not want to hurt herself. Patient wanting to walk around ED and not stay in the room, nurse walked one lap around nurses station with patient. Nurse notified charge nurse of patient status. 16:16 Reassessment: patient refusing to leave curtain open. no sitter available to sit with ap3 patient. patient educated on need for curtain to stay open. 16:51 Reassessment: patient placed in paper hospital gown, belongings checked with second RN ap3 and sent with security. sitter is now at patients bedside. 18:12 Reassessment: nurse [place] nurse [place] [facility] [place] 19:25 General: Appears in no apparent distress. comfortable, Behavior is agitated. General: lg3 Behavior is agitated, cursing, pacing, talking to self. Pain: Denies pain. Neuro: Level of Consciousness is awake, stuporous, Oriented to person, place, situation. Cardiovascular: No deficits noted. Denies chest pain, shortness of breath, Capillary refill < 3 seconds Clubbing of nail beds is absent JVD is absent Patient's skin is warm and dry. Respiratory: No deficits noted. Airway is patent Trachea midline Respiratory effort is even, unlabored, Respiratory pattern is regular, symmetrical. GI: No deficits noted. No signs and/or symptoms were reported involving the gastrointestinal system. Abdomen is flat, non-distended. : No deficits noted. No signs and/or symptoms were reported regarding the genitourinary system. EENT: No deficits noted. No signs and/or symptoms were reported regarding the EENT system. Derm: No deficits noted. No signs and/or symptoms reported regarding the dermatologic system. Skin is intact, is healthy with good turgor, Skin is dry, Skin temperature is warm. Musculoskeletal: No deficits noted. No signs and/or symptoms reported regarding the musculoskeletal system. Circulation, motion, and sensation intact. Range of motion: intact in all extremities. 21:53 Reassessment: Patient appears in no apparent distress at this time. No changes from lg3 previously documented assessment. Patient and/or family updated on plan of care and expected duration. Pain level reassessed. Patient is alert, oriented x 3, equal unlabored respirations, skin warm/dry/pink. Vital Signs: 14:40 BP 130 / 76; Pulse 80; Resp 16; Temp 97.3(TE); Pulse Ox 99% ; Weight 57.15 kg (R); bm7 Height 4 ft. 11 in. (149.86 cm); Pain 0/10; 21:53 BP 131 / 82; Pulse 84; Resp 17 S; Pulse Ox 99% on R/A; lg3 14:40 Body Mass Index 25.45 (57.15 kg, 149.86 cm) bm7 ED Course: 14:08 Patient arrived in ED. bm7 14:19 Sukumar Toro DO is Attending Physician. ms3 14:35 Triage completed. bm7 14:35 Arm band placed on right wrist. bm7 15:17 Mabel Horn RN is Primary Nurse. ap3 15:44 Inserted saline lock: 22 gauge in left forearm, using aseptic technique. ap3 16:13 Patient has correct armband on for positive identification. Patient is placed in psych ap3 hold. 21:48 IV discontinued, intact, bleeding controlled, No redness/swelling at site. Pressure zm dressing applied. 21:53 No provider procedures requiring assistance completed. lg3 21:55 IV discontinued, intact, bleeding controlled, No redness/swelling at site. Pressure lg3 dressing applied. Administered Medications: No medications were administered Medication: 16:14 VIS not applicable for this client. ap3 Outcome: 16:16 ER care complete, transfer ordered by . ms3 21:53 Transferred by ground EMS to other acute care facility: [facility]. Transfer lg3 form completed. 21:53 Condition: stable 21:53 Instructed on the need for transfer, Demonstrated understanding of instructions. 21:59 Patient left the ED. tw5 Signatures: Mabel Horn RN RN ap3 Sariah Jaeger RN RN lg3 Sukumar Toro DO DO ms3 Promise Melendez RN RN bm7 Wood, Tiffany tw5 Blanca Sneed
[2021-11-01 17:27] LABS: Hematocrit 33.7 % (36.0-45.0); Lymphocytes % 32.8 % (15.3-44.8); MCV 101.1 fL (80-100); RBC Red Blood Cell Count 3.34 M/uL (3.86-4.86)
[2021-11-01 17:40] LABS: Protime INR 1.12
[2021-11-01 17:43] LABS: SARS-CoV-2 Antigen Rapid Res Negative (Negative)
[2021-11-01 17:46] LABS: Barbiturates NEGATIVE (NEGATIVE); Benzodiazepines NEGATIVE (NEGATIVE); Cocaine NEGATIVE (NEGATIVE); METHAMPHETAM NEGATIVE (NEGATIVE); Methadone NEGATIVE (NEGATIVE); Opiates NEGATIVE (NEGATIVE); Phencyclidine NEGATIVE (NEGATIVE); THC Cannibis POSITIVE (NEGATIVE)
[2021-11-01 17:53] LABS: ALT/SGPT 17 U/L (12-78); AST/SGOT 23 U/L (15-37); Albumin 3.9 g/dL (3.4-5.0); Alkaline Phosphatase 90 U/L (45-117); BUN Blood Urea Nitrogen 47 mg/dL (7-18); Bicarbonate 24 mmol/L (21-32); Bilirubin Direct 0.2 mg/dL (0-0.2); Bilirubin Total 0.7 mg/dL (0.2-1.0); Glomerular Filtration Rate 26 ml/min (=/>90); Glucose Level 100 mg/dL (74-106); Potassium 3.5 mmol/L (3.5-5.1); Protein, Total 8.2 g/dL (6.4-8.2); Sodium Level 135 mmol/L (136-145)
[2021-11-02 02:46] VITALS: TEMP 97.3; O2SAT 99
[2021-11-02 02:48] VITALS: BP 131/82
== END 2021-11-01 21:59 ==
LOC: ER 13:54
DX: R45.850 Homicidal ideations (principal); F20.9 Schizophrenia, unspecified; F17.210 Nicotine dependence, cigarettes, uncomplicated; Z88.0 Allergy status to penicillin; Z88.5 Allergy status to narcotic agent; Z20.822 Contact with and (suspected) exposure to COVID-19
CPT/HCPCS: 36415; 80048; 80076; 80307; 80320; 80329; 85025; 85610; 85730; 87811; 99285